=== PATIENT | female | born 1940 | race Caucasian/White ===

== ENCOUNTER 2017-06-02 09:55 | Outpatient (CLI) | payer MEDICARE, OTHER | END 2017-06-02 09:56 | disposition home or self-care (01) | PROVIDERS: ATTEND Physician Assistant | DX: K21.9 Gastro-esophageal reflux disease without esophagitis (principal); R13.10 Dysphagia, unspecified; R49.0 Dysphonia; R49.8 Other voice and resonance disorders | CPT/HCPCS: 74230; G8996-GN-CI; G8997-GN-CH; G8998-GN-CI ==

== ENCOUNTER 2017-09-16 13:15 | Observation (INO) | payer MEDICARE ==
[~2017-09-16 13:15] MED LIST: ISOVUE-370 76%-LOCM 1 ML ONE
[2017-09-16] MEDS ORDERED: Labetalol HCl 100 MG/20 ML VIAL ONE (13:46)
[2017-09-16 14:32] LABS: #Basophils 0.1 thou/uL (0.0-0.2); #Eosinphils 0.2 thou/uL (0.0-0.7); #Lymphocytes 1.9 thou/uL (1.20-3.40); #Monocytes 0.5 thou/uL (0.11-0.59); #Neutrophils 7.2 thou/uL (1.40-6.50); %Eosinophils 1.7 % (0.0-10.0); %Lymphocytes 19.3 % (21.0-51.0); %Monocytes 4.7 % (0.0-10.0); %Neutrophils 73.2 % (42.0-75.0); Hemoglobin 14.2 g/dL (12.0-16.0); Mean Corpuscular HGB CONC 33.4 g/dL (32.0-36.0); Mean Corpuscular Hemoglobin 32.2 pg (27.0-31.0); Mean Corpuscular Volume 96.5 fl (81.0-99.0); Platelet Count 243 thou/uL (130-400); RBC Distribution Width 13.5 % (11.5-14.5); Red Blood Cell (RBC) Count 4.41 mill/uL (4.20-5.40); White Blood Cell (WBC) Count 9.9 thou/uL (4.8-10.8)
[2017-09-16 14:58] LABS: CKMB 2.6 ng/mL (0-6.6); Troponin I 0.023 ng/mL (< 0.028)
[2017-09-16 15:16] LABS: ALT (SGPT) 21 U/L (8-55); AST (SGOT) 33 U/L (5-34); Albumin 4.4 g/dL (3.4-4.8); Alkaline Phosphatase 100 U/L (40-150); Anion Gap 17 mmol/L (10-20); BUN (Urea Nitrogen) 25 mg/dL (9.8-20.1); Bilirubin, Total 0.4 mg/dL (0.2-1.2); CK (CPK) 96 U/L (29-168); Calc. Creatinine Clearance 0 mL/min (70-130); Calcium 10.6 mg/dL (7.8-10.44); Carbon Dioxide 26 mmol/L (23-31); Chloride 101 mmol/L (98-107); Estimated GFR-MDRD 55; Globulin 3.9 g/dL (2.4-3.5); Glucose 100 mg/dL (83-110); Lipase 18 U/L (8-78); Potassium 5.2 mmol/L (3.5-5.1); Protein, Total 8.3 g/dL (6.0-8.3); Sodium 139 mmol/L (136-145)
--- NOTE | 2017-09-16 15:43 | CT ---
CT ANGIOGRAM OF THE CHEST WITH IV CONTRAST AND 3D POSTPROCESSING CT ANGIOGRAM OF THE ABDOMEN WITH IV CONTRAST AND 3D POSTPROCESSING 09/16/17 HISTORY: 77-year-old female with right sided chest pain, arm pain, abdominal pain. FINDINGS: The thoracoabdominal aorta demonstrates good contrast opacification without dissection or aneurysmal dilatation. There is good flow in the celiac axis, ascending, RAHUL and both renal arteries. No pleural or pericardial effusions are seen. No pneumothoraces, focal areas of consolidation or lung masses are identified. There is an 8 mm right paratracheal lymph node. No free air or free fluid is seen in the abdomen. The pancreas, adrenal glands and kidneys are unrema rkable. No hypervascular lesions seen in the liver. The spleen is not satisfactorily evaluated due to imaging during the arterial phase of contrast administration. The patient is post cholecystectomy. T here is an umbilical hernia containing a small portion of the transverse colon. This is a fat contain ing midline abdominal hernia. Postop changes are seen in the abdominal wall. There are degenerative c hanges in the spine. IMPRESSION: No CT evidence of aortic aneurysm or dissection. POS: [facility]
--- NOTE | 2017-09-16 17:24 | CT ---
CERVICAL SPINE CT NONCONTRAST: 09/16/17 CLINICAL HISTORY: Right sided radiculopathy, neck pain. FINDINGS: There is multilevel anterior metallic fusion which spans C4 through C7. No obvious hardware complicat ion. There are intradiscal prosthesis at the C4-5, C5-6 and C6-7 levels. No significant subluxation. No evidence of craniocervical distraction injury. There is no high grade osseous compromise of verteb ral canal at the C1-2 level. C2-3: There is prominent left asymmetric facet degenerative hypertrophy which narrows the left forami nal zone and lateral aspect of the left subarticular zone. There is no high grade osseous compromise of the vertebral canal otherwise demonstrated. C3-4: Mild osseous compromise of the vertebral canal on the basis of disc osteophyte complex. There i s severe bilateral osseous compromise of each neural foramen. At the operative levels of C4-5, C5-6, there is mild to moderate osseous compromise of the vertebral canal although limited by streak artifact. There is also bilateral moderate to severe osseous comprom ise of each neural foramen at these levels. At C6-7 operative site, there is moderate osseous compromise of the vertebral canal greater to the le ft and moderate to severe osseous compromise of each neural foramen. C7-T1: There is moderate osseous compromise of the vertebral canal and moderate right and mild left o sseous compromise of the neural foramen on the basis of disc osteophyte formation. IMPRESSION: Multilevel degenerative change of the cervical spine limited in assessment by noncontrast CT techniqu e, as discussed above. There is no acute fracture or obvious hardware complication visualized. POS: [facility]
[2017-09-16 17:49] LABS: Troponin I 0.014 ng/mL (< 0.028)
[2017-09-16] MEDS ORDERED: Nitroglycerin 0.4 MG TAB (25 Tab Bottle) PO PRN (18:30)
[2017-09-16] MEDS ORDERED: Bisacodyl 5 MG TAB PO PRN ×2 (18:30)
[2017-09-16] MEDS ORDERED: Acetaminophen 325 MG TAB PO PRN (18:30)
[2017-09-16] MEDS ORDERED: HYDROcodone/Acetaminophen 5/325 mg Tablet PO PRN (18:30)
[2017-09-16] MEDS ORDERED: Lorazepam 1 MG TAB PO PRN (18:30)
[2017-09-16] MEDS ORDERED: Diabetic Tussin 200 MG/10 ML UDCUP PO PRN (18:30)
[2017-09-16] MEDS ORDERED: Senokot 8.6 MG TAB PO PRN ×2 (18:30)
[2017-09-16] MEDS ORDERED: Mag-Al 1200 mg/1200 mg/30 ML UDCUP PO PRN (18:30)
[2017-09-16] MEDS ORDERED: Benzonatate 100 MG CAP PO PRN (18:30)
[2017-09-16] MEDS ORDERED: Nitroglycerin 0.4 MG TAB (25 Tab Bottle) SL PRN (18:30)
[2017-09-16] MEDS ORDERED: Loratadine 10 MG TAB PO PRN (18:30)
[2017-09-16] MEDS ORDERED: Calcium Carbonate 500 MG ChewTAB PO PRN (18:30)
[2017-09-16] MEDS ORDERED: cloNIDine 0.1 MG TAB PO PRN (18:30)
[2017-09-16] MEDS ORDERED: hydrALAZINE 20 MG/ML VIAL SLOW IVP PRN (18:30)
[2017-09-16] MEDS ORDERED: Ondansetron HCl/PF 4 MG/2 ML Vial IVP PRN ×2 (18:30→18:31)
[2017-09-16] MEDS ORDERED: Ondansetron ODT 4 MG TAB SL PRN (18:31)
[2017-09-16] MEDS: traMADol HCl 50 MG TAB PO PRN (20:08)
[2017-09-16 21:15] LABS: Cardiac Risk 3.4 (Less than 4.5)
[2017-09-16 21:18] LABS: Troponin I 0.012 ng/mL (< 0.028)
[2017-09-16] MEDS: Famotidine 20 MG TAB PO SCH (21:56)
[2017-09-17] MEDS: traMADol HCl 50 MG TAB PO PRN ×2 (00:09→04:30)
--- NOTE | 2017-09-17 02:02 | HP ---
PRIMARY CARE PHYSICIAN: Dr. Thapa. CHIEF COMPLAINT: Right-sided arm pain, neck pain and chest pain. HISTORY OF PRESENT ILLNESS: Ms. Jha is a very pleasant 77-year-old female with known history of hypertension as well as osteoarthritis of the neck, status post surgery in 2012, who presented to the emergency room with the above-mentioned complaints. History is mainly obtained by the patient herse lf and electronic medical records have been reviewed. Case has been discussed with admitting ER phys laina, Dr. Villagran. According to Ms. Jha, she always has had this pain along with her fibromyalgia pain. She describ es the pain as originating at the back of her neck, shoulder, going down her right arm and really ingrid ting in her right side of the chest. She has had it for a while, but recently it worsened over the c ourse of the last week. She denies any left-sided chest pain or left arm numbness. She does have so me numbness and tingling in the right arm. The pain was pretty intense and she presented to the ER w ith that. She denies any recent illnesses. She denies any fever, chills, cough. She denies any marques rtness of breath, orthopnea or PND. She denies any nausea, vomiting, dizziness or palpitations. Upon presentation to the emergency room, her blood pressure was very high with systolic 210. She und erwent a CT aortic dissection protocol which was negative for dissection or aneurysm. Her cardiac en zymes were done and were unremarkable. A 12-lead EKG was also unremarkable for acute NC. She is now being admitted for further workup of "chest pain." Please note that on my interview with the patient, the patient denies any left-sided chest pain sympt oms. She emphasizes that her pain is mainly on the right arm and right side of the chest and she is significantly tender to palpation in that area. She reports sharp, shooting, burning pain in the arm and reports that it has been there for many months. PAST MEDICAL HISTORY: Hypertension, fibromyalgia. PAST SURGICAL HISTORY: 1. History of neck surgery. 2. Bladder suspension. 3. Cholecystectomy. 4. Hysterectomy. 5. Bilateral knee surgery. 6. Bilateral shoulder surgery PSYCHIATRIC HISTORY: No anxiety or depression. SOCIAL HISTORY: She is and lives with her . No history of drug, tobacco or alcohol a buse. FAMILY HISTORY: No significant family history of coronary artery disease or stroke. ALLERGIES: 1. ADHESIVE TAPE. 2. CEPHALEXIN. 3. ENALAPRIL. 4. NIFEDIPINE. 5. SULFONAMIDE. 6. CURRENT MEDICATIONS: The patient does not remember her home medications. She states that she is lanie ing a water pill and potassium along with that. REVIEW OF SYSTEMS: The following complete review of systems was negative, unless otherwise mentioned in the HPI or below: Constitutional: Weight loss or gain, ability to conduct usual activities. Sk in: Rash, itching. Eyes: Double vision, pain. ENT/Mouth: Nose bleeding, neck stiffness, pain, te nderness. Cardiovascular: Palpitations, dyspnea on exertion, orthopnea. Respiratory: Shortness of breath, wheezing, cough, hemoptysis, fever or night sweats. Gastrointestinal: Poor appetite, abdom inal pain, heartburn, nausea, vomiting, constipation, or diarrhea. Genitourinary: Urgency, frequenc y, dysuria, nocturia. Musculoskeletal: Pain, swelling. Neurologic/Psychiatric: Anxiety, depressio n. Allergy/Immunologic: Skin rash, bleeding tendency. It is negative except for those mentioned in the history and physical. LABORATORY DATA: CBC is unremarkable. Serum chemistries show potassium of 5.2, BUN of 25, creatinin e of 0.99, calcium 10.6, CK-MB 2.6, troponin 0.023. CT of the chest and abdomen with aortic dissecti on protocol was done and there is no evidence of aneurysm or dissection of the aorta. No pulmonary o r pleural abnormality is seen either. A 12-lead EKG by my review shows normal sinus rhythm at 66 haroldo ts per minute without any specific ST or T-wave changes. PHYSICAL EXAMINATION: VITAL SIGNS: Upon presentation, blood pressure 210/82, pulse of 77, respirations 18, saturating 98% on room air, temperature 97.6. GENERAL: Patient is clutching her right arm in her left arm and appears to be uncomfortable due to t he pain. Otherwise, she is awake, alert, oriented x3. She is able to provide all of the history wit hout any discomfort. HEENT: Mucous membranes moist and pink. No oropharyngeal exudate or erythema. Head is normocephali c, atraumatic. Pupils are equal, reactive to light and accommodation. Extraocular movements are int act. NECK: Supple without any lymphadenopathy, JVD or bruit. CHEST: Clear to auscultation without any wheezing, rales or rhonchi. Rate and rhythm is regular wit hout any murmurs, rubs, or gallops. She is extremely tender to palpation in the right anterior chest , right lateral chest and her right arm. ABDOMEN: Soft, obese, nontender, nondistended. No guarding, rebound or rigidity. EXTREMITIES: Free of any cyanosis, clubbing, or edema. She has palpable radial pulses felt bilatera lly in upper extremities. SKIN: Free of any rashes or bruises. Feels warm and dry to touch. NEUROLOGIC: Nonfocal. PSYCHIATRIC: Normal affect. IMPRESSION AND PLAN: 1. Right-sided arm and chest pain. This is highly unlikely for acute myocardial infarction. She rosa s normal Cardiac enzymes, normal EKG. She reported that she sees Dr. Carrasco as an outpatient and has h ad a recent stress test done. I discussed this with Dr. Carrasco over the phone and indeed she had a nor mal stress test done in 11/2016. For this reason and because of the clinical signs and symptoms poin ting to an alternate diagnosis, we will just try and do serial cardiac enzymes. We will, however, go ahead and order a CT scan of the cervical spine. The last one she had was done in 11/2016 which did show some cord impingement. As such if required, we will consult Neurosurgery. For now, she will b e monitored on telemetry floor. 2. Hypertensive urgency. The pain is exacerbating her blood pressure. We will restart her home med ications and add p.r.n. antihypertensives. Her blood pressure is under better control now that she h as received labetalol and morphine in the emergency room. We will continue to monitor symptoms. 3. Fibromyalgia. 4. History of osteoarthritis. 5. CODE STATUS: FULL CODE. Discussed with the patient. 6. Deep venous thrombosis and gastrointestinal prophylaxis. 7. DISPOSITION: Ms. Jha is being admitted to the hospital for workup of "chest pain." However, her symptoms are more indicative of radiculopathy. Nevertheless, she will be admitted and workup fo r both will be initiated. Further management will depend upon her clinical course.
[2017-09-17 06:09] LABS: #Basophils 0.1 thou/uL (0.0-0.2); #Eosinphils 0.1 thou/uL (0.0-0.7); #Lymphocytes 1.6 thou/uL (1.20-3.40); #Monocytes 0.4 thou/uL (0.11-0.59); #Neutrophils 3.9 thou/uL (1.40-6.50); %Eosinophils 1.9 % (0.0-10.0); %Lymphocytes 26.3 % (21.0-51.0); %Monocytes 6.1 % (0.0-10.0); %Neutrophils 64.8 % (42.0-75.0); Hemoglobin 11.8 g/dL (12.0-16.0); Mean Corpuscular HGB CONC 32.8 g/dL (32.0-36.0); Mean Corpuscular Hemoglobin 32.1 pg (27.0-31.0); Mean Platelet Volume 9.3 fL (7.4-10.4); Platelet Count 200 thou/uL (130-400); RBC Distribution Width 13.4 % (11.5-14.5); Red Blood Cell (RBC) Count 3.69 mill/uL (4.20-5.40)
[2017-09-17 06:26] LABS: Anion Gap 8 mmol/L (10-20); BUN (Urea Nitrogen) 21 mg/dL (9.8-20.1); Calc. Creatinine Clearance 80 mL/min (70-130); Calcium 9.6 mg/dL (7.8-10.44); Carbon Dioxide 28 mmol/L (23-31); Chloride 103 mmol/L (98-107); Estimated GFR-MDRD 70; Glucose 91 mg/dL (83-110); Sodium 135 mmol/L (136-145)
[2017-09-17 08:57] VITALS: BP 200/86; TEMP 97.3
[2017-09-17] MEDS ORDERED: Enoxaparin Sodium 40 MG/0.4 ML SYRINGE SC SCH (09:00)
[2017-09-17] MEDS ORDERED: Aspirin 325 MG TAB PO SCH (09:00)
[2017-09-17] MEDS: Famotidine 20 MG TAB PO SCH (09:02)
--- NOTE | 2017-09-17 11:12 | PDOC.PN ---
- Subjective Encounter Start Date: 09/17/17 Encounter Start Time: 09:45 Subjective: c/o right UE pain radiating from her neck -: no palp or sob - Objective MAR Reviewed: Yes Vital Signs & Weight: Vital Signs (12 hours) Temp Pulse Resp BP Pulse Ox 09/17/17 09:02 97.3 F L 71 20 09/17/17 08:05 97.3 F L 71 20 200/86 H 92 L 09/17/17 04:25 97.6 F 77 14 136/69 96 09/16/17 23:41 63 16 130/61 92 L Weight Weight 183 lb 12.8 oz I&O: 09/16/17 09/17/17 09/18/17 06:59 06:59 06:59 Intake Total 600 Balance 600 Result Diagrams: 09/17/17 05:06 09/17/17 05:06 Phys Exam - Physical Examination HEENT: PERRLA, moist MMs Neck: no JVD, supple Respiratory: no wheezing, no rales Cardiovascular: RRR, no significant murmur Gastrointestinal: soft, non-tender, positive bowel sounds Musculoskeletal: no edema, pulses present Neurological: non-focal, moves all 4 limbs Psychiatric: A&O x 3 Dx/Plan (1) Radicular pain of right upper extremity Code(s): M79.2 - NEURALGIA AND NEURITIS, UNSPECIFIED Status: Acute (2) Dyslipidemia Code(s): E78.5 - HYPERLIPIDEMIA, UNSPECIFIED Status: Chronic (3) HTN (hypertension) Code(s): I10 - ESSENTIAL (PRIMARY) HYPERTENSION Status: Chronic Qualifiers: Hypertension type: essential hypertension Qualified Code(s): I10 - Essential (primary) hypertension (4) Fibromyalgia Status: Chronic (5) Chest pain Code(s): R07.9 - CHEST PAIN, UNSPECIFIED Status: Acute Comment: atypical pain sec to radiculopathy - Plan pt to f/u with in am at 8.40am -: she also needs to see her orthopedic surgeon and -: chest pain is noncardiac -: dc pt home -: ultram prn for pain * .
--- NOTE | 2017-09-17 15:49 | DIS ---
DATE OF ADMISSION: 09/16/2017 DATE OF DISCHARGE: 09/17/2017 DISCHARGE DISPOSITION: To home. PRIMARY DISCHARGE DIAGNOSES: Right-sided chest pain, which is noncardiac and right upper extremity radicular pain. SECONDARY DISCHARGE DIAGNOSES: History of fibromyalgia, hypertension, and dyslipidemia. PROCEDURES DONE DURING HOSPITALIZATION: The patient has had CT cervical spine, noncontrast study done, which showed multilevel degenerative changes of the C- spine. CT dissection protocol done showed no evidence of aneurysm or dissection. H&H 11 and 36, platelet count 200, MCV is 98. White count of 6. Troponin x3 negative. LDL 142, lipase 18, BUN 21, and creatinine 0.8. DISCHARGE MEDICATIONS: Ultram 50 mg q.6 hourly p.r.n., K-Dur 20 mEq p.o. daily , Lasix 20 mg daily, and Lopressor 25 mg daily. ALLERGIES: KEFLEX, ADHESIVES, ENALAPRIL, GABAPENTIN, LOSARTAN, MEPERIDINE, and SULFA. DISCHARGE PLAN: Patient to follow up with Dr. Miles in the morning at 8:40 a.m. and primary care physician in 1 week. BRIEF COURSE DURING HOSPITALIZATION: Patient initially came to ER with complaints of right-sided chest pain and more of right upper extremity pain radiating from her neck down to her right upper extremity. She has had this for nearly 2-3 months now. She has had followups with Dr. Duran and her orthopedic surgeon, Dr. Masterson per patient. As this was unrelenting, she came to the ER. The patient was placed under observation to rule out ACS. Three sets of cardiac enzymes were negative. Patient has had prior cervical MRI done in , which showed hypertrophic changes at C5-C6 and C6-C7, which were impinging on the cord then. She has also had C-spine surgery done in 06/[address] Gokul Duran. In view of her right upper extremity radicular symptoms, she is being scheduled for outpatient appointment with Dr. Miles for possible epidural shot for pain relief. She also needs follow up with her orthopedic surgeon to rule out right shoulder issues. She is otherwise hemodynamically stable and will be shortly discharged home. Please see a face- to-face documentation on [facility] for the day of discharge. [facility]
--- NOTE | 2017-09-20 12:00 | EKG ---
Test Reason : Blood Pressure : / mmHG Vent. Rate : 066 BPM Atrial Rate : 066 BPM P-R Int : 148 ms QRS Dur : 078 ms QT Int : 386 ms P-R-T Axes : 046 018 030 degrees QTc Int : 404 ms Normal sinus rhythm Possible Inferior infarct , age undetermined Abnormal ECG Confirmed by ABEBE THOMAS MD ([id number]), marketing editor FAVIAN CORDERO ([id number]) on 09/20/2017 12:00:08 PM Referred By: Confirmed By:ABEBE THOMAS MD
== END 2017-09-17 10:57 | disposition home or self-care (01) ==
LOC: ERS 13:15 → ERHOLD 15:20 → 2SW 18:01
PROVIDERS: ADMIT Internal Medicine; ATTEND Internal Medicine
DX: R07.89 Other chest pain (principal); M79.2 Neuralgia and neuritis, unspecified; E78.5 Hyperlipidemia, unspecified; I10 Essential (primary) hypertension; M79.7 Fibromyalgia; Z88.1 Allergy status to other antibiotic agents; Z88.2 Allergy status to sulfonamides; Z88.8 Allergy status to other drugs, medicaments and biological substances; Z91.048 Other nonmedicinal substance allergy status; Z90.49 Acquired absence of other specified parts of digestive tract; Z90.710 Acquired absence of both cervix and uterus; Z98.890 Other specified postprocedural states
CPT/HCPCS: 71275; 72125; 80048; 80053; 80061; 82550; 82553; 83690; 84484 ×2; 85025 ×2; 93005; 96372; 96374; 96375; 96376; 99285; G0378 ×2; 36415; J1650; J2270; J2405; Q0162

== ENCOUNTER 2017-10-08 12:25 | Outpatient (CLI) | payer MEDICARE ==
[~2017-10-08 12:25] MED LIST changes: +Gadobenate Dimeglumine 529 MG/1 ML (20ML VIAL) ONE; -ISOVUE-370 76%-LOCM 1 ML ONE
--- NOTE | 2017-10-08 15:57 | MRI ---
MRI CERVICAL SPINE WITH AND WITHOUT IV CONTRAST: INDICATION: History of continued pain and numbness in the right arm and hand but now has progressed to the left u pper extremity. The patient has a history of neck surgery. TECHNIQUE: Multiplanar, multisequence MR images were obtained of the cervical spine with and without contrast. Twenty CC of MultiHance was utilized for the exam. Comparisons are made with a prior study dated 11/16 . FINDINGS: There is postprocedural change consistent with ACDF spanning C4 through C7. The extent of the ACDF a ppears similar to the prior exam. Prominent right granulation is again seen within the posterior occ ipital skull. Posterior fossa appears within normal limits. Craniocervical junction appears within normal limits. At C2-3, there is advanced left and moderate right facet joint degenerative. There is uncovertebral hypertrophy. Constellation of findings induces moderate to severe bilateral neural foraminal narrowi ng, left greater than right, which is stable to the prior exam. At C3-4, there is uncovertebral hypertrophy and facet joint degenerative change and a mild broad-base d bulge causing mild central canal narrowing. This appears stable to the prior exam. Constellation of findings induces stable severe bilateral neural foraminal narrowing. At C4-5, there is residual uncovertebral hypertrophy and osteophyte formation inducing moderate right and mild to moderate left neural foraminal narrowing. At C5-6, there is residual osteophyte complex inducing mild to moderate bilateral osseous neural fora roman narrowing and mild to moderate bilateral neural foraminal narrowing which is stable. At C6-7, there is residual osteophyte complex inducing mild to moderate central canal narrowing with mild ventral effacement of the spinal cord. No cord signal abnormality is evident. This is stable t o the prior exam. There is stable severe left and moderate right neural foraminal narrowing. At C7-T1, there is stable osteophyte complex causing severe right and mild left neural foraminal narr owing. No definite abnormal region of enhancement is noted. IMPRESSION: 1. Stable multilevel neural foraminal narrowing as detailed above. 2. Stable central canal narrowing seen at C6-7 and C7-T1. POS: [facility]
== END 2017-10-08 12:26 | disposition home or self-care (01) ==
LOC: MRI 12:25
PROVIDERS: ATTEND Surgery
DX: M54.12 Radiculopathy, cervical region (principal); M99.81 Other biomechanical lesions of cervical region
CPT/HCPCS: 72156; A9579

== ENCOUNTER 2017-10-27 11:59 | Outpatient (CLI) | payer MEDICARE ==
[2017-10-27 12:53] LABS: Hemoglobin 12.8 g/dL (12.0-16.0); Mean Corpuscular HGB CONC 33.7 g/dL (32.0-36.0); Mean Corpuscular Hemoglobin 32.3 pg (27.0-31.0); Mean Corpuscular Volume 96.1 fl (81.0-99.0); Platelet Count 186 thou/uL (130-400); RBC Distribution Width 13.2 % (11.5-14.5); Red Blood Cell (RBC) Count 3.96 mill/uL (4.20-5.40); White Blood Cell (WBC) Count 6.2 thou/uL (4.8-10.8)
[2017-10-27 13:16] LABS: Anion Gap 11 mmol/L (10-20); BUN (Urea Nitrogen) 25 mg/dL (9.8-20.1); Calc. Creatinine Clearance 0 mL/min (70-130); Calcium 10.2 mg/dL (7.8-10.44); Carbon Dioxide 28 mmol/L (23-31); Chloride 105 mmol/L (98-107); Estimated GFR-MDRD 66; Glucose 90 mg/dL (83-110); Potassium 4.4 mmol/L (3.5-5.1); Sodium 140 mmol/L (136-145)
[2017-10-27 13:31] LABS: PTT 28.2 SEC (22.9-36.1); Prothrombin Time 12.9 SEC (12.0-14.7)
== END 2017-10-27 12:00 | disposition home or self-care (01) ==
LOC: LABBT 11:59
PROVIDERS: ATTEND Surgery
DX: Z01.810 Encounter for preprocedural cardiovascular examination (principal); Z01.812 Encounter for preprocedural laboratory examination; M48.02 Spinal stenosis, cervical region; M54.12 Radiculopathy, cervical region
CPT/HCPCS: 80048; 85027; 85610; 85730; 93005; 93010

== ENCOUNTER 2017-11-04 07:28 | Day surgery (SDC) | payer MEDICARE ==
[2017-11-04] MEDS ORDERED: Clindamycin/D5W 900 mg/50 ml Premix Bag ONE (08:10)
[2017-11-04] MEDS ORDERED: Levofloxacin 500 mg/D5W 100 ml Premix Bag ONE (08:11)
[2017-11-04] MEDS ORDERED: Bacitracin Zinc Ointment 30 gm TUBE ONE (09:54)
[2017-11-04] MEDS ORDERED: Thrombin 5000 UNITS/5 ML VIAL ONE (10:51)
[2017-11-04] MEDS ORDERED: Sodium Chloride 0.9% 10 ML ONE (10:51)
[2017-11-04] MEDS ORDERED: Phenylephrine HCL 10 MG/ML VIAL ONE (11:01)
[2017-11-04] MEDS ORDERED: Fentanyl 250 MCG/5 ML VIAL ONE (11:05)
[2017-11-04] MEDS ORDERED: Metoclopramide HCl 10 MG/2 ML VIAL ONE ×2 (13:33→14:56)
--- NOTE | 2017-11-04 14:40 | OP ---
DATE OF PROCEDURE: 11/04/2017 OR: OR #11 SURGEON: Gokul Duran M.D. CARD FOLDER: Keny Horton PA-C. 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 PROCEDURE: 1. Bilateral C7-T1 hemilaminotomy and foraminotomies for decompression of the C8 nerve roots. 2. Bilateral T1-T2 hemilaminotomies, foraminotomies for decompression of the T1 nerve roots bilatera lly and removal of bone spur formation with medial facetectomies, bilateral C7-T1, bilateral T1-T2, w ith history of C4-C7 anterior cervical diskectomy and fusion. PROCEDURE: After informed consent was obtained from the patient, the patient brought to OR 11. [facility] patient pause and identification was carried out. She was placed under excellent endotracheal ane sthesia and positioned prone on the operating room table following the placement of the Fishman pini on and securing it to her skull. We then turned our attention to drawing out a tadeo over the C7-T1 a nd T2 segments over the dorsum of the spine and this region was sterilely cleansed, prepared, and anastasia ped following securing the Fishman. We then sterilely cleansed, prepared, and draped the region and an incision over the C7, T1 and T2 segments was drawn out dorsally and this region sterilely cleanse d, prepared, and draped. The wound was then opened with a combination of sharp, monopolar and blunt dissection. We exposed the bilateral C7-T1 and T2 segments. We were careful to preserve the lateral 50% of the facet joint bilaterally along with the interspinous ligament and spinous processes at C7, T1, and T2 to preserve stability below her prior construct. Localization film confirmed our area of interest and we then performed bilateral C7-T1 and bilateral T1-T2 hemilaminotomies, foraminotomies and mesial facetectomies for decompression of the bilateral C8 and bilateral T1 nerve roots. We had excellent decompression of the nerve roots and copious irrigation occurred throughout Hemostasis was maximized throughout as well and the wound was then closed in anatomic layers following the sprinklin g of vancomycin powder. There was no spinal fluid leak. The patient then emerged from anesthesia.
[2017-11-04] MEDS ORDERED: Promethazine HCl 25 MG/ML VIAL IM PRN ×2 (14:48→15:02)
[2017-11-04] MEDS ORDERED: Fleet Enema 133 ML BOT PR PRN (14:48)
[2017-11-04] MEDS ORDERED: Mag-Al 1200 mg/1200 mg/30 ML UDCUP PO PRN (14:48)
[2017-11-04] MEDS ORDERED: tiZANidine HCl 4 MG TAB PO PRN (14:48)
[2017-11-04] MEDS ORDERED: traMADol HCl 50 MG TAB PO PRN (14:48)
[2017-11-04] MEDS ORDERED: Bisacodyl 10 MG SUPP PR PRN (14:48)
[2017-11-04] MEDS ORDERED: Milk Of Magnesia 30 ML UDCUP PO PRN (14:48)
[2017-11-04] MEDS ORDERED: Acetaminophen/Codeine 30-300mg Tablet PO PRN (14:48)
[2017-11-04] MEDS ORDERED: Acetaminophen 325 MG TAB PO PRN (14:48)
[2017-11-04] MEDS ORDERED: Polyethylene Glycol 3350 17 GM Packet PO PRN (14:51)
[2017-11-04] MEDS ORDERED: PHENYLEPHRINE-NS 100 MCG/ML 10 ML SYRINGE ONE (14:56)
[2017-11-04] MEDS ORDERED: Dexamethasone 20 MG/5 ML VIAL ONE (14:56)
[2017-11-04] MEDS ORDERED: Glycopyrrolate 0.2 MG/ML 5 ML SYRINGE ONE ×2 (14:56)
[2017-11-04] MEDS ORDERED: PROPOFOL 200 MG/20 ML VIAL ONE (14:56)
[2017-11-04] MEDS ORDERED: Ondansetron HCl/PF 4 MG/2 ML Vial ONE (14:56)
[2017-11-04] MEDS ORDERED: Lidocaine 1% PF 5 ML VIAL ONE (14:56)
[2017-11-04] MEDS ORDERED: Ondansetron HCl/PF 4 MG/2 ML Vial IVP PRN (15:02)
[2017-11-04] MEDS ORDERED: Morphine Sulfate 2 MG/ML SYRINGE SLOW IVP PRN (15:02)
[2017-11-04] MEDS ORDERED: Promethazine HCl 25 MG/ML VIAL SLOW IVP PRN (15:02)
[2017-11-04] MEDS ORDERED: HYDROmorphone 2 MG/ML VIAL SLOW IVP PRN (15:02)
[2017-11-04] MEDS ORDERED: Promethazine HCl 25 MG/ML VIAL ONE (15:10)
[2017-11-04 17:15] VITALS: BMI 34.7
[2017-11-04] MEDS: Sodium Chloride 0.9% 1,000 ML IV SCH (18:09)
[2017-11-04] MEDS: Metoprolol Tartrate 25 MG TAB PO SCH (21:58)
[2017-11-04] MEDS: Clindamycin/D5W 900 MG in Premix Bag 1 BAG IVPB SCH (21:59)
[2017-11-04] MEDS: Nystatin Powder 15 GM BOT TOP SCH (21:59)
[2017-11-05] MEDS: Sodium Chloride 0.9% 1,000 ML IV SCH (05:20)
[2017-11-05] MEDS: Clindamycin/D5W 900 MG in Premix Bag 1 BAG IVPB SCH (05:20)
[2017-11-05 07:37] VITALS: BP 152/74; TEMP 98.1
[2017-11-05] MEDS: Metoprolol Tartrate 25 MG TAB PO SCH (08:56)
[2017-11-05] MEDS: Nystatin Powder 15 GM BOT TOP SCH (08:58)
[2017-11-05] MEDS ORDERED: Furosemide 20 MG TAB PO SCH (09:00)
[2017-11-05] MEDS ORDERED: Potassium Chloride 8 MEQ TAB PO SCH (09:00)
--- NOTE | 2017-11-05 11:08 | PRG ---
DATE OF SERVICE: 11/05/2017 The patient is now postoperative day #1, having undergone posterior cervical foraminotomies and hemil aminotomies at C7-T1 and T1-T2. The patient states overall she is very pleased with her outcome post operatively. The pain she experienced especially into the bilateral armpits has completely resolved at this time. She does continue to have some numbness and tingling into the radial aspect of the clay ateral arms and to the 3rd and 4th digits, but otherwise states she is much better today. She has ve ry good function in the hands and she notes even improvement in strength into the bilateral triceps a nd bilateral hand intrinsics. She has intact sensation to light touch throughout. She has voided, t olerated a diet, and pain is controlled with oral medications. She has walked. She now meets criter ia for discharge. We will plan for dismissal later today. We did review postoperative activity rest rictions. An opportunity was given to the patient and her to discuss their questions and con cerns.
== END 2017-11-05 10:52 | disposition home or self-care (01) ==
LOC: SDC 07:28 → T4-A 16:52 → SDC 11-05 10:52
PROVIDERS: ATTEND Surgery
PROC: 01N10ZZ Release Cervical Nerve, Open Approach (ICD-10-PCS; principal; 2017-11-04)
PROC: 01N80ZZ Release Thoracic Nerve, Open Approach (ICD-10-PCS; 2017-11-04)
DX: M48.02 Spinal stenosis, cervical region (principal); M54.12 Radiculopathy, cervical region; M48.04 Spinal stenosis, thoracic region; M54.14 Radiculopathy, thoracic region; I10 Essential (primary) hypertension; G47.33 Obstructive sleep apnea (adult) (pediatric); K21.9 Gastro-esophageal reflux disease without esophagitis; K58.1 Irritable bowel syndrome with constipation; N39.3 Stress incontinence (female) (male); M19.90 Unspecified osteoarthritis, unspecified site; F32.9 Major depressive disorder, single episode, unspecified; Z79.899 Other long term (current) drug therapy; Z88.1 Allergy status to other antibiotic agents; Z88.2 Allergy status to sulfonamides; Z88.5 Allergy status to narcotic agent; Z88.8 Allergy status to other drugs, medicaments and biological substances; Z98.1 Arthrodesis status; Z96.653 Presence of artificial knee joint, bilateral; Z99.89 Dependence on other enabling machines and devices
CPT/HCPCS: A4216; J0131; J1100; J1956; J2001; J2370; J2405; J2550; J2704; J2765; J3010; J3370; J3490

== ENCOUNTER 2017-11-09 21:41 | Emergency (ER) | payer MEDICARE ==
[~2017-11-09 21:41] MED LIST changes: -Gadobenate Dimeglumine 529 MG/1 ML (20ML VIAL) ONE; +ISOVUE-370 76%-LOCM 1 ML ONE
[2017-11-09] MEDS ORDERED: Nitroglycerin 2% Ointment 1 INCH/1 GM Packet ONE (22:23)
[2017-11-09 22:34] LABS: Bilirubin Negative (Negative); Blood, Urine Negative (Negative); Clarity CLEAR (Clear); Glucose, Urine (Dipstick) Negative (Negative); Leukocyte Negative (Negative); Nitrite Negative (Negative); Protein, Urine (Dipstick) Negative (Neg-Trace); Specific Gravity, Urine 1.013 (1.002-1.036)
[2017-11-09 22:35] LABS: #Basophils 0.1 thou/uL (0.0-0.2); #Eosinphils 0.3 thou/uL (0.0-0.7); #Lymphocytes 1.9 thou/uL (1.20-3.40); #Monocytes 0.7 thou/uL (0.11-0.59); #Neutrophils 7.2 thou/uL (1.40-6.50); %Basophils 0.9 % (0.0-1.0); %Eosinophils 2.6 % (0.0-10.0); %Lymphocytes 18.5 % (21.0-51.0); %Monocytes 7.3 % (0.0-10.0); %Neutrophils 70.7 % (42.0-75.0); Hemoglobin 11.2 g/dL (12.0-16.0); Mean Corpuscular HGB CONC 34.8 g/dL (32.0-36.0); Mean Corpuscular Hemoglobin 33.4 pg (27.0-31.0); Mean Corpuscular Volume 96.2 fl (81.0-99.0); Mean Platelet Volume 8.8 fL (7.4-10.4); Platelet Count 233 thou/uL (130-400); RBC Distribution Width 12.3 % (11.5-14.5); Red Blood Cell (RBC) Count 3.35 mill/uL (4.20-5.40); White Blood Cell (WBC) Count 10.2 thou/uL (4.8-10.8)
[2017-11-09 22:37] LABS: PTT 33.2 SEC (22.9-36.1); Prothrombin Time 13.3 SEC (12.0-14.7)
[2017-11-09 22:49] LABS: ALT (SGPT) 27 U/L (8-55); AST (SGOT) 22 U/L (5-34); Albumin 3.7 g/dL (3.4-4.8); Alkaline Phosphatase 154 U/L (40-150); Anion Gap 15 mmol/L (10-20); BUN (Urea Nitrogen) 17 mg/dL (9.8-20.1); Bilirubin, Total 0.7 mg/dL (0.2-1.2); CK (CPK) 39 U/L (29-168); Calc. Creatinine Clearance 0 mL/min (70-130); Calcium 9.9 mg/dL (7.8-10.44); Carbon Dioxide 26 mmol/L (23-31); Chloride 99 mmol/L (98-107); Estimated GFR-MDRD 49; Globulin 3.2 g/dL (2.4-3.5); Glucose 88 mg/dL (83-110); Potassium 3.8 mmol/L (3.5-5.1); Protein, Total 6.9 g/dL (6.0-8.3); Sodium 136 mmol/L (136-145)
--- NOTE | 2017-11-09 22:52 | RAD ---
PORTABLE AP CHEST: Date: 11/09/17 HISTORY: Chest pain. History of neck surgery on Friday. COMPARISON: 09/22/14. FINDINGS: Cardiac silhouette and pulmonary vasculature are within normal limits for the portable technique of t he study. The lungs are clear. Postsurgical changes related to anterior cervical fusion are again not ed. There are skin clips also overlying the midline lower cervical spine. There is left glenohumeral osteoarthropathy present. IMPRESSION: No acute cardiopulmonary process. POS: [facility]
[2017-11-09 22:53] LABS: CKMB 0.7 ng/mL (0-6.6); Troponin I Less than 0.010 ng/mL (< 0.028)
--- NOTE | 2017-11-09 23:15 | CT ---
CT ANGIOGRAM THORAX WITH IV CONTRAST AND 3D RECONSTRUCTIONS: Date: 11/09/17 HISTORY: Chest pain with pain radiating to back. Shortness of breath. History of spine surgery on Friday. COMPARISON: 09/16/17. FINDINGS: There are no filling defects seen in the pulmonary arteries to suggest a pulmonary embolus. Thoracic aorta is normal in caliber without evidence of an aortic dissection. The heart is enlarged. There is minimal pleural effusion versus pleural thickening posteriorly. There is also dependent atel ectasis bilaterally. Mediastinal structures have a normal CT appearance. Post cholecystectomy changes are noted. Remainder of the upper abdomen has a normal CT appearance for arterial phase of imaging. There is partial visualization of a fat-containing ventral abdominal wall hernia. Multilevel degenerative changes are seen within the thoracic spine. There is bilateral glenohumeral o steoarthropathy with acromioclavicular joint osteoarthritis present. IMPRESSION: 1. No CT evidence of a pulmonary embolus. 2. Thoracic aorta is normal in caliber without evidence of an aortic dissection. 3. Minimal pleural effusions and/or pleural thickening with dependent atelectasis bilaterally. 4. Mild cardiomegaly. 5. Post cholecystectomy changes. 6. Degenerative changes in the spine. POS: [facility]
--- NOTE | 2017-11-09 23:43 | CT ---
CT THORACIC SPINE: Date; 11/09/17 HISTORY: Chest pain. History of cervical spine fusion. Patient also reports chest pain which radiates to the b ack. TECHNIQUE: Reformatted images are obtained from CT angiogram of the chest. FINDINGS: There are postsurgical changes related to anterior cervical fusion of the lower cervical spine. There are punctate foci of gas seen adjacent to the lamina of the lower cervical spine and upper thoracic spine of uncertain etiology, but probably related to postsurgical changes as there are skin clips see n posteriorly at these levels as well. There are probable laminotomy defects at C7 and T1 level. There is no fracture or subluxation seen involving the thoracic spine. There are multilevel degenerat elena changes seen involving the lower thoracic and upper lumbar spine with vacuum phenomenon seen at m ultiple levels and narrowing of the intervertebral disc spaces. There are multilevel osteophyte forma tions seen, greatest anteriorly. Facet degenerative changes are seen at multiple levels of the lower thoracic and visualized upper lumbar spine. No obvious intradural or extradural defect is seen involv ing the thoracic spine. There are varying degrees of neural foraminal narrowing in the lower thoracic spine, primarily secondary to the facet hypertrophic changes. No vertebral body height loss is present. The paravertebral soft tissues are within normal limits, although there is slight decreased attenuati on posterior to the region of the cervicothoracic junction likely related to the recent postsurgical changes. Findings within the lungs are described on CTA of the chest. Please see that exam for further details . IMPRESSION: 1. Postsurgical changes of the cervical spine related to anterior cervical fusion with postsurgical changes seen posteriorly within the region of the cervicothoracic junction. Skin clips are also seen posteriorly at this level with foci of gas seen adjacent to the lamina. 2. Degenerative changes in the thoracic spine, but no fracture or subluxation is present. POS: [facility]
== END 2017-11-10 02:30 | disposition home or self-care (01) ==
LOC: ERS 21:41
DX: G89.18 Other acute postprocedural pain (principal); M54.6 Pain in thoracic spine; I10 Essential (primary) hypertension; M79.7 Fibromyalgia
CPT/HCPCS: 36415; 71045; 71275; 72129; 80053; 81003; 82553; 83880; 84484; 85025; 85610; 85730; 93005

== ENCOUNTER 2017-11-16 11:28 | Observation (INO) | payer MEDICARE ==
[2017-11-16 12:23] LABS: #Basophils 0.1 thou/uL (0.0-0.2); #Eosinphils 0.2 thou/uL (0.0-0.7); #Monocytes 0.4 thou/uL (0.11-0.59); #Neutrophils 6.3 thou/uL (1.40-6.50); %Basophils 0.7 % (0.0-1.0); %Eosinophils 2.4 % (0.0-10.0); %Monocytes 4.4 % (0.0-10.0); %Neutrophils 70.5 % (42.0-75.0); Hemoglobin 11.3 g/dL (12.0-16.0); Mean Corpuscular HGB CONC 33.4 g/dL (32.0-36.0); Mean Corpuscular Hemoglobin 33.1 pg (27.0-31.0); Mean Platelet Volume 8.4 fL (7.4-10.4); Platelet Count 322 thou/uL (130-400); RBC Distribution Width 12.5 % (11.5-14.5); Red Blood Cell (RBC) Count 3.41 mill/uL (4.20-5.40)
--- NOTE | 2017-11-16 12:29 | CT ---
CT BRAIN NONCONTRAST: HISTORY: A 77-year-old female with symptoms of acute stroke: hypesthesia (numbness) in face and fingertips. This stroke-alert protocol report was called STAT to Dr. Brar at 11:41 a.m. on 11/16/17. FINDINGS: There is no midline shift or any other mass effect. There is no evidence of acute intracranial hemor rhage, large cortical infarct, obstructive hydrocephalus, or extraaxial fluid collection. The calvar ium is intact. IMPRESSION: No acute intracranial findings. CODE CR jn [] POS: [facility]
[2017-11-16 12:33] LABS: PTT 34.7 SEC (22.9-36.1); Prothrombin Time 13.3 SEC (12.0-14.7)
[2017-11-16 12:37] LABS: ALT (SGPT) 15 U/L (8-55); AST (SGOT) 13 U/L (5-34); Albumin 3.7 g/dL (3.4-4.8); Alkaline Phosphatase 102 U/L (40-150); Anion Gap 12 mmol/L (10-20); BUN (Urea Nitrogen) 23 mg/dL (9.8-20.1); Bilirubin, Total 0.4 mg/dL (0.2-1.2); Calc. Creatinine Clearance 0 mL/min (70-130); Calcium 9.7 mg/dL (7.8-10.44); Carbon Dioxide 29 mmol/L (23-31); Chloride 102 mmol/L (98-107); Estimated GFR-MDRD 49; Glucose 97 mg/dL (83-110); Magnesium 1.8 mg/dL (1.6-2.6); Potassium 3.9 mmol/L (3.5-5.1); Protein, Total 6.7 g/dL (6.0-8.3); Sodium 139 mmol/L (136-145)
[2017-11-16 12:41] LABS: CKMB 1.4 ng/mL (0-6.6); Troponin I Less than 0.010 ng/mL (< 0.028)
[2017-11-16 12:42] LABS: Bilirubin Negative (Negative); Blood, Urine Negative (Negative); Clarity CLEAR (Clear); Glucose, Urine (Dipstick) Negative (Negative); Leukocyte Negative (Negative); Nitrite Negative (Negative); Protein, Urine (Dipstick) Negative (Neg-Trace); Urobilinogen 0.2 mg/dL (0.2-1.0)
[2017-11-16] MEDS ORDERED: Guaifenesin DM 100-10/5 ML UDCUP PO PRN (14:53)
[2017-11-16] MEDS ORDERED: Acetaminophen 325 MG TAB PO PRN (14:53)
[2017-11-16] MEDS ORDERED: predniSONE 20 MG TAB PO SCH (15:00)
[2017-11-16 15:23] LABS: Troponin I Less than 0.010 ng/mL (< 0.028)
[2017-11-16 15:45] VITALS: BMI 34.8
--- NOTE | 2017-11-16 17:36 | HP ---
REASON FOR ADMISSION: Possible drug reaction, possible transient ischemic attack. HISTORY OF PRESENTING ILLNESS: The patient got up around 1:30 in the morning with a feeling of her left side of her lips being swollen. She went to restroom to look in the mirror. She saw her left face being drooped and had some numbness to her chin with her lips being swollen. The patient went back to bed thinking this might go away. Around 5 in the morning when she woke up, it was still the same. She thought if she takes omeprazole, it might come down as she had some reflux symptoms as well. The patient started to itch all over, but more so in her thighs. She took Children's Benadryl and after a while the itching resolved. By the time she arrived in the ER, her left facial droop and the swelling of her lips and inner cheeks had completely resolved. Currently, she has no complaints of chest pain, palpitation, PND or orthopnea. The only new medication she is on is tizanidine, which she has been taking for pain for her recent T2 spine surgery done 2 weeks back. No complaints of cough or expectoration. Patient ambulates by herself. PAST MEDICAL AND SURGICAL HISTORY: History of fibromyalgia, hypertension, dyslipidemia, bladder suspension surgery, cholecystectomy, hysterectomy, bilateral knee surgery, bilateral shoulder surgery, C7-T1 hemilaminotomy and foraminotomy for decompression of C8 nerve root, the same done for T1-T2 for decompression of T1 nerve, all of this were done on 11/04/[address] Duran. CURRENT MEDICATIONS: The patient is on omeprazole p.r.n., Naprosyn p.r.n., MiraLax 17 grams p.o. daily p.r.n., Lopressor 12.5 mg twice daily, Lasix 20 mg daily, potassium chloride 99 mg daily, tizanidine 4 mg p.o. q.8 hourly p.r.n., calcium with vitamin D3 one tab daily. ALLERGIES: Multiple medications including KEFLEX, ENALAPRIL, GABAPENTIN, HYDROCODONE, LOSARTAN, MEPERIDINE, SULFA. PERSONAL HISTORY: Does not abuse alcohol or drugs. No history of smoking. Lives with her . Her is currently hospitalized for atrial fibrillation. FAMILY HISTORY: Mother at the age of 82 years. She has had history of CVA. Father had developed CVA with aneurysm rupture and at the age of 48 years. He has had history of pancreatitis as well. REVIEW OF SYSTEMS: The following complete review of systems was negative, unless otherwise mentioned in the HPI or below: Constitutional: Weight loss or gain, ability to conduct usual activities. Skin: Rash, itching. Eyes: Double vision, pain. ENT/Mouth: Nose bleeding, neck stiffness, pain, tenderness. Cardiovascular: Palpitations, dyspnea on exertion, orthopnea. Respiratory: Shortness of breath, wheezing, cough, hemoptysis, fever or night sweats. Gastrointestinal: Poor appetite, abdominal pain, heartburn, nausea, vomiting, constipation, or diarrhea. Genitourinary: Urgency, frequency, dysuria, nocturia. Musculoskeletal: Pain, swelling. Neurologic/Psychiatric: Anxiety, depression. Allergy/Immunologic: Skin rash, bleeding tendency. PHYSICAL EXAMINATION: GENERAL: The patient is a 77-year-old female who is currently not in any acute distress. VITAL SIGNS: Blood pressure 142/78, pulse 78 per minute, respiratory rate 18 per minute, saturating 98% on room air, temperature is 98.1 degrees Fahrenheit. NECK: Supple, no elevated JVD. EYES: Extraocular muscles intact. Pupils reacting to light. ORAL CAVITY: Mucous membranes are moist. No exudates or congestion. There is no obvious exudate or edema in the oral cavity, including tongue. CARDIOVASCULAR SYSTEM: S1 and S2 heard. Regular rhythm. RESPIRATORY SYSTEM: Air entry 2+ bilateral. No rales or rhonchi. ABDOMEN: Soft, bowel sounds heard. No tenderness, rigidity or guarding. EXTREMITIES: No peripheral edema or calf tenderness. VASCULAR SYSTEM: Peripheral pulses 1+ bilateral, no ischemic ulcerations or gangrene. CENTRAL NERVOUS SYSTEM: No gross focal deficits seen. Patient is alert, awake , and oriented well. PSYCHIATRIC SYSTEM: The patient's mood is euthymic. No hallucinations or delusions. LABORATORY DATA AND X-RAY FINDINGS: EKG done shows normal sinus rhythm at 69 beats per minute, no gross ST-T wave changes. CT brain done showed no acute intracranial findings. UA is negative for any infection. Electrolytes are stable. BUN 22, creatinine 1.0, serum glucose 97. Electrolytes are stable. First set of cardiac enzymes are negative. Albumin is 3.7. White count of 9, hemoglobin and hematocrit 11 and 33, platelet count 322 with 70% neutrophils, MCV is 99. CLINICAL IMPRESSION AND PLAN: The patient will be under observation on the stroke unit for possible TIA versus allergic reaction with left facial droop and swelling of lips and inner cheeks at home, but none on arrival here. She will be on a small dose of prednisone and we will continue her aspirin and Lopressor along with Pepcid as before. Patient has a recent thoracic spine surgery with likely hardware and most likely we will not be able to obtain an MRI. She will be closely monitored on the stroke unit to see for any recurrence of her symptoms. The patient is also advised and counseled to have outpatient allergy medical billing service appointment in 4-6 weeks once all the ruben were removed from her thoracic spine surgery. She is otherwise hemodynamically stable and likely will be discharged in the morning. DONNELL
[2017-11-16] MEDS ORDERED: diphenhydrAMINE 25 MG CAP PO SCH (18:30)
[2017-11-16 19:04] LABS: Troponin I 0.011 ng/mL (< 0.028)
[2017-11-16] MEDS ORDERED: Prevnar 13-Val Conj/PF 0.5 ML SYRINGE IM ONE (21:00)
[2017-11-16] MEDS: Famotidine 20 MG TAB PO SCH (21:11)
[2017-11-16] MEDS: Metoprolol Tartrate 25 MG TAB PO SCH (21:11)
[2017-11-17 05:52] LABS: #Monocytes 0.2 thou/uL (0.11-0.59); #Neutrophils 5.8 thou/uL (1.40-6.50); %Basophils 0.3 % (0.0-1.0); %Eosinophils 0.5 % (0.0-10.0); %Lymphocytes 13.9 % (21.0-51.0); %Monocytes 3.5 % (0.0-10.0); %Neutrophils 81.9 % (42.0-75.0); Hemoglobin 10.8 g/dL (12.0-16.0); Mean Corpuscular HGB CONC 33.9 g/dL (32.0-36.0); Mean Corpuscular Hemoglobin 32.8 pg (27.0-31.0); Mean Corpuscular Volume 96.6 fl (81.0-99.0); Mean Platelet Volume 8.2 fL (7.4-10.4); Platelet Count 272 thou/uL (130-400); RBC Distribution Width 12.1 % (11.5-14.5); Red Blood Cell (RBC) Count 3.29 mill/uL (4.20-5.40)
[2017-11-17 06:26] LABS: Anion Gap 10 mmol/L (10-20); BUN (Urea Nitrogen) 18 mg/dL (9.8-20.1); Calc. Creatinine Clearance 75 mL/min (70-130); Calcium 9.2 mg/dL (7.8-10.44); Carbon Dioxide 27 mmol/L (23-31); Cardiac Risk 4.2 (Less than 4.5); Chloride 106 mmol/L (98-107); Cholesterol 176 mg/dl (< 200 Desired); Estimated GFR-MDRD 64; Glucose 132 mg/dL (83-110); HDL Cholesterol 42 mg/dL (>60 Neg Risk); LDL Cholesterol, Calculated 117 mg/dL; Potassium 4.5 mmol/L (3.5-5.1); Sodium 138 mmol/L (136-145); Triglycerides 83 mg/dL (Less than 150)
[2017-11-17] MEDS ORDERED: predniSONE 20 MG TAB PO SCH (08:00)
[2017-11-17] MEDS: Metoprolol Tartrate 25 MG TAB PO SCH (08:20)
[2017-11-17] MEDS: Famotidine 20 MG TAB PO SCH (08:20)
[2017-11-17] MEDS ORDERED: Aspirin 81 mg Enteric Coated Tablet PO SCH (09:00)
[2017-11-17] MEDS ORDERED: Enoxaparin Sodium 40 MG/0.4 ML SYRINGE SC SCH (09:00)
--- NOTE | 2017-11-17 11:13 | PDOC.PN ---
- Subjective Encounter Start Date: 11/17/17 Encounter Start Time: 09:00 Subjective: no dizziness, weakness or chest pain -: is amb in room without any assistance - Objective Resuscitation Status: Resuscitation Status FULL:Full Resuscitation MAR Reviewed: Yes Vital Signs & Weight: Vital Signs (12 hours) Temp Pulse Resp BP BP BP Pulse Ox 11/17/17 08:20 97.6 F 64 16 139/70 96 11/17/17 07:15 97.6 F 64 16 190/99 H 96 11/17/17 06:20 98.6 F 67 18 154/82 H 96 11/17/17 00:00 98.4 F 62 12 134/59 L 95 Weight Weight 184 lb 7 oz I&O: 11/16/17 11/17/17 11/18/17 06:59 06:59 06:59 Intake Total 302 Balance 302 Result Diagrams: 11/17/17 05:00 11/17/17 05:00 Phys Exam - Physical Examination HEENT: PERRLA, moist MMs Neck: no JVD, supple Respiratory: no wheezing, no rales Cardiovascular: RRR, no significant murmur Gastrointestinal: soft, non-tender, positive bowel sounds Musculoskeletal: no edema, pulses present Neurological: non-focal, moves all 4 limbs Psychiatric: normal affect, A&O x 3 Dx/Plan (1) TIA (transient ischemic attack) Status: Resolved Qualifiers: Transient cerebral ischemia type: unspecified Qualified Code(s): G45.9 - Transient cerebral ischemic attack, unspecified (2) Drug reaction Code(s): T88.7XXA - UNSP ADVERSE EFFECT OF DRUG OR MEDICAMENT, INIT ENCNTR Status: Resolved (3) Dyslipidemia Code(s): E78.5 - HYPERLIPIDEMIA, UNSPECIFIED Status: Chronic (4) Fibromyalgia Status: Chronic (5) HTN (hypertension) Code(s): I10 - ESSENTIAL (PRIMARY) HYPERTENSION Status: Chronic Qualifiers: Hypertension type: essential hypertension - Plan asp, crestor -: hemo/neurostable without any deficits -: d/w daughter and patient -: dc pt home * .
[2017-11-17 11:40] VITALS: BP 148/75; TEMP 98
--- NOTE | 2017-11-17 14:08 | DIS ---
DATE OF ADMISSION: 11/16/2017 DATE OF DISCHARGE: 11/17/2017 DISCHARGE DISPOSITION: To home. PRIMARY DISCHARGE DIAGNOSES: Possible transient ischemic attack with facial palsy, resolved; drug reaction, resolved. SECONDARY DISCHARGE DIAGNOSES: Dyslipidemia, fibromyalgia, hypertension. PROCEDURES DONE DURING HOSPITALIZATION: CT brain done showed no acute intracranial abnormalities. H and H 11 and 32, platelet count 272, MCV is 96, LDL 117, total cholesterol 176, triglycerides 83, HDL 42. Troponin x3 is negative. DISCHARGE MEDICATIONS: Aspirin 81 mg p.o. daily, Crestor 5 mg p.o. at bedtime, Lasix 10 mg p.o. daily, potassium 99 mg p.o. daily, MiraLax p.r.n., Lopressor 12.5 mg p.o. twice daily, Motrin p.r.n. for pain, vitamin D3 2000 units p.o. daily. ALLERGIES: Allergic to KEFLEX, ENALAPRIL, GABAPENTIN, LOSARTAN, MEPERIDINE, SULFA. DISCHARGE PLAN: Patient to follow up with primary care physician in 1 week. BRIEF COURSE DURING HOSPITALIZATION: Patient initially came to ER with complaints of left facial droop and swelling of her tongue and cheek. She also had itching all over, but worse over the thigh and leg area. She attributed this to taking omeprazole prior. In view of this history, the patient was placed under observation on stroke unit for possible TIA. All her symptoms had completely resolved by the time she arrived in the ER. She was closely monitored on the stroke unit. The patient is ambulating well and has no further issues with her tongue swelling, cheek swelling, or numbness. She is talking and expressing well and is at her baseline function. Patient is advised to follow up with an allergy automotive general sales manager in 4-6 weeks to check for allergens. The patient is also allergic to multiple medications. She has had recent C7-T1 and T1-T2 decompression done and still has ruben on the upper back. She needs to follow up with Dr. Duran for staple removal as before. She has been placed on a small dose of Crestor to see if she tolerates and primary care physician is to slowly escalate this to 10-20 mg. She is hemodynamically and neurologically stable for discharge today. Please see face to face documentation on [facility] for the day of discharge. [facility]
[2017-11-17] MEDS ORDERED: Rosuvastatin 5 MG TAB PO SCH (21:00)
--- NOTE | 2017-11-22 20:42 | EKG ---
Test Reason : Blood Pressure : / mmHG Vent. Rate : 069 BPM Atrial Rate : 069 BPM P-R Int : 160 ms QRS Dur : 080 ms QT Int : 406 ms P-R-T Axes : 020 050 045 degrees QTc Int : 435 ms Normal sinus rhythm Normal ECG Confirmed by ANGELICA RAM ([id number]), editor book LYNN QIU ([id number]) on 11/22/2017 8:41:21 PM Referred By: Confirmed By:ANGELICA ARM
== END 2017-11-17 12:45 | disposition home or self-care (01) ==
LOC: ERS 11:28 → 2SE 13:24
PROVIDERS: ADMIT Internal Medicine; ATTEND Internal Medicine
DX: R29.810 Facial weakness (principal); R22.0 Localized swelling, mass and lump, head; M79.7 Fibromyalgia; I10 Essential (primary) hypertension; E78.5 Hyperlipidemia, unspecified; Z79.82 Long term (current) use of aspirin; Z79.899 Other long term (current) drug therapy; Z88.1 Allergy status to other antibiotic agents; Z88.2 Allergy status to sulfonamides; Z88.5 Allergy status to narcotic agent; Z88.8 Allergy status to other drugs, medicaments and biological substances
CPT/HCPCS: 70450; 80048; 80053; 80061; 81003; 82553; 82962; 83735; 84484 ×2; 85025 ×2; 85610; 85730; 90670; 93005; 96372; 97139; 99285; G0009; G0378; 36415; 36416; 90471; J1650; J7506

== ENCOUNTER 2019-09-28 10:08 | Outpatient (CLI) | payer MEDICARE ==
--- NOTE | 2019-09-28 12:01 | MRI ---
MRI LUMBAR SPINE NONCONTRAST:: HISTORY: Low back pain, radiating into both hips. Recent fall. COMPARISON: 09/12/2011. FINDINGS: Heterogeneous marrow signal intensity of the lumbar vertebrae suggesting a component senescent change . Stable scoliotic curvature. There is evidence of type I and type II Modic change at the T12-L1 level. There is type II Modic change at L1-L2, L2-L3, L3-L4, L4-L5 and L5-S1. Lumbar spine vertebral body heights are maintained. There is no fracture. Mild edema involving the T12-L1 disc space compatible with type I Modic changes noted. No evidence of cyst ligamentous injury. Appropriate signal intensity visualized paraspinal muscles. No retroperitoneal mass, lymphadenopathy or hematoma. Visualized solid organs are unremarkable. Prominence of both renal pelvises. Conus medullaris terminates at the mid to lower aspect of L1. Spondylolisthesis: T12-L1: 1.2 mm of retrolisthesis. L1-L2: 2.4 mm of retrolisthesis. L2-L3: 2.8 mm of retrolisthesis. L5-S1: 6.1 mm of anterolisthesis. T 11-T12: Broad-based disc bulge, results in mild central canal stenosis. There does appear to be typ e I Modic change along the right aspect of the disc. Moderate right foraminal narrowing. Mild left foraminal narrowing. T12-L1:Desiccation with severe loss of disc space height. Broad-based disc bulge, ligamentum flavum t hickening and facet hypertrophy result in mild central canal stenosis. Moderate right neural foraminal narrowing. Patent left foraminal narrowing. L1-L2:Desiccation with severe loss of disc space height. Broad-based disc bulge, ligament flavum thic kening and facet hypertrophy result in mild central canal stenosis. Severe right and moderate left foraminal narrowing. L2-L3:Desiccation with moderate to severe loss of disc space height. Broad-based disc bulge, ligament flavum thickening and facet result in moderate central canal stenosis. Moderate to severe right and moderate left neural foraminal narrowing. L3-L4:Desiccation with severe loss of disc space height. Broad-based disc bulge, ligament flavum thic kening and facet hypertrophy result in mild central canal stenosis. Mild right and moderate to severe left foraminal narrowing. L4-L5:Desiccation with moderate to severe loss of disc space height. Broad-based disc bulge, ligament flavum thickening and facet hypertrophy result in mild central canal stenosis. Mild right and moderate to severe left foraminal narrowing. L5-S1:Disc desiccation with mild to moderate loss of disc space height. Broad-based disc bulge, ligam ent flavum thickening and facet hypertrophy result in mild to moderate central canal stenosis. There is narrowing of bilateral subarticular zones with partial obscuration of bilateral traversing S 1 nerve roots. Mild to moderate bilateral neural foraminal narrowing. IMPRESSION: 1. Multilevel degenerative changes of the lumbar spine as detailed above. Significant multilevel neur al foraminal narrowing as detailed above. 2. No fracture. 2. Spondylolisthesis as detailed above. Transcribed Date/Time: 09/28/2019 12:19 PM
== END 2019-09-28 10:09 | disposition home or self-care (01) ==
LOC: BICMRI 10:08
PROVIDERS: ATTEND Physician Assistant Surgical
DX: M47.26 Other spondylosis with radiculopathy, lumbar region (principal); M48.061 Spinal stenosis, lumbar region without neurogenic claudication; M48.07 Spinal stenosis, lumbosacral region; M43.16 Spondylolisthesis, lumbar region
CPT/HCPCS: 72148

== ENCOUNTER 2020-01-18 15:55 | Emergency (ER) | payer MEDICARE ==
[2020-01-18 17:46] LABS: #Basophils 0.1 thou/uL (0.0-0.2); #Monocytes 0.6 thou/uL (0.11-0.59); #Neutrophils 9.5 thou/uL (1.40-6.50); %Basophils 0.5 % (0.0-1.0); %Eosinophils 0.4 % (0.0-10.0); %Lymphocytes 16.1 % (21.0-51.0); %Monocytes 5.2 % (0.0-10.0); %Neutrophils 77.8 % (42.0-75.0); Hemoglobin 11.5 g/dL (12.0-16.0); Mean Corpuscular HGB CONC 32.8 g/dL (32.0-36.0); Mean Corpuscular Hemoglobin 32.2 pg (27.0-31.0); Mean Corpuscular Volume 98.1 fL (78.0-98.0); Mean Platelet Volume 10.2 fL (7.4-10.4); Platelet Count 162 thou/uL (130-400); RBC Distribution Width 13.3 % (11.5-14.5); Red Blood Cell (RBC) Count 3.57 mill/uL (4.20-5.40); White Blood Cell (WBC) Count 12.2 thou/uL (4.8-10.8)
[2020-01-18 18:09] LABS: ALT (SGPT) 10 U/L (8-55); AST (SGOT) 29 U/L (5-34); Albumin 3.7 g/dL (3.4-4.8); Alkaline Phosphatase 93 U/L (40-110); Anion Gap 12 mmol/L (10-20); BUN (Urea Nitrogen) 34 mg/dL (9.8-20.1); Bilirubin, Total 0.3 mg/dL (0.2-1.2); Calc. Creatinine Clearance 0 mL/min (70-130); Calcium 9.5 mg/dL (7.8-10.44); Carbon Dioxide 28 mmol/L (23-31); Chloride 103 mmol/L (98-107); Estimated GFR-MDRD 44; Globulin 2.6 g/dL (2.4-3.5); Glucose 111 mg/dL (83-110); Potassium 3.8 mmol/L (3.5-5.1); Protein, Total 6.3 g/dL (6.0-8.3); Sodium 139 mmol/L (136-145)
--- NOTE | 2020-01-22 14:10 | EKG ---
Test Reason : Blood Pressure : / mmHG Vent. Rate : 076 BPM Atrial Rate : 076 BPM P-R Int : 168 ms QRS Dur : 084 ms QT Int : 384 ms P-R-T Axes : 021 002 043 degrees QTc Int : 432 ms Sinus rhythm with Premature supraventricular complexes Voltage criteria for left ventricular hypertrophy Inferior infarct , age undetermined Abnormal ECG Confirmed by NORAH PRESTON DO ([id number]), editor in chief FAVIAN CORDERO ([id number]) on 01/22/2020 2:10:21 PM Referred By: Confirmed By:NORAH PRESTON DO
== END 2020-01-18 19:50 | disposition home or self-care (01) ==
LOC: ERS 15:55
DX: R55 Syncope and collapse (principal); I10 Essential (primary) hypertension; M79.7 Fibromyalgia; E78.5 Hyperlipidemia, unspecified
CPT/HCPCS: 80053; 84484; 85025; 93005; 96360

== ENCOUNTER 2020-06-13 16:08 | Inpatient (IN) | payer MEDICARE, OTHER ==
[2020-06-13] MEDS ORDERED: Morphine 4 MG/ML VIAL ONE ×2 (16:28→17:43)
[2020-06-13] MEDS ORDERED: Ondansetron PF 4 MG/2 ML Vial ONE (16:29)
[2020-06-13 16:50] LABS: #Basophils 0.1 thou/uL (0.0-0.2); #Lymphocytes 1.8 thou/uL (1.20-3.40); #Monocytes 0.3 thou/uL (0.11-0.59); #Neutrophils 7.1 thou/uL (1.40-6.50); %Basophils 0.7 % (0.0-1.0); %Eosinophils 0.4 % (0.0-10.0); %Lymphocytes 18.9 % (21.0-51.0); %Monocytes 3.7 % (0.0-10.0); %Neutrophils 76.3 % (42.0-75.0); Mean Corpuscular HGB CONC 33.9 g/dL (32.0-36.0); Mean Corpuscular Hemoglobin 31.7 pg (27.0-31.0); Mean Corpuscular Volume 93.4 fL (78.0-98.0); Mean Platelet Volume 11.4 fL (7.4-10.4); Platelet Count 195 thou/uL (130-400); RBC Distribution Width 13.5 % (11.5-14.5); Red Blood Cell (RBC) Count 4.42 mill/uL (4.20-5.40); White Blood Cell (WBC) Count 9.3 thou/uL (4.8-10.8)
[2020-06-13] MEDS ORDERED: Lorazepam 2 MG/ML VIAL ONE (18:07)
[2020-06-13] MEDS ORDERED: HYDROmorphone 0.5 MG/0.5 ML SYRINGE ONE ×2 (18:09→18:10)
[2020-06-13 18:14] LABS: ALT (SGPT) 19 U/L (8-55); AST (SGOT) 18 U/L (5-34); Alkaline Phosphatase 101 U/L (40-110); Anion Gap 13 mmol/L (10-20); BUN (Urea Nitrogen) 17 mg/dL (9.8-20.1); Bilirubin, Total 0.4 mg/dL (0.2-1.2); CK (CPK) 70 U/L (29-168); Calc. Creatinine Clearance 0 mL/min (70-130); Calcium 10.3 mg/dL (7.8-10.44); Carbon Dioxide 25 mmol/L (23-31); Chloride 105 mmol/L (98-107); Estimated GFR-MDRD 65; Glucose 107 mg/dL (83-110); Potassium 4.7 mmol/L (3.5-5.1); Sodium 138 mmol/L (136-145)
--- NOTE | 2020-06-13 21:02 | MRI ---
MRI LUMBAR SPINE WITH AND WITHOUT CONTRAST: 06/13/20 INDICATIONS: Back pain. Pain after receiving a back injection today. Comparison made to MRI lumbar spine dated 09/28/19. FINDINGS: Prominent degenerative changes of the Lumbar spine again noted. There is loss of disc space at all le vels. Degenerative end plate changes are prominent at T12-L1 but are stable from the prior exam. The re are anterior osteophytes and posterior spondylosis and disc bulge at multiple levels which appear stable from 09/28/19. There is a mass density seen in the posterior spinal canal in the midline which extends from the lev el of the T11-12 disc inferiorly to the upper level 1 vertebra. This extends over a 3.5 cm craniocaud al length. This abnormality measures approximately 1.0 cm AP dimension in the axial plane. This does compress the posterior cord. Postcontrast images show mild peripheral enhancement surrounding this lesion. No significant internal enhancement. At T11-12, there is a diffuse disc bulge with mild central canal stenosis. At T12-L1, there is a broad based disc bulge with facet hypertrophy compressing the thecal sac and th e conus. The posterior epidural mass also compresses the conus from posterior resulting in moderate c entral canal stenosis and cord compression. At L1-2, broad based disc bulge and facet hypertrophy. A small disc protrusion unchanged from the pr ior exam. Mild central canal stenosis. At L2-3, diffuse disc bulge and facet hypertrophy with mild to moderate central canal stenosis, uncha nged. At L3-4, moderate central canal stenosis from disc bulge and hypertrophic change. Foraminal stenosis on the left. At L4-5, disc bulge and hypertrophic change results in moderate central canal stenosis and left olga inal stenosis. At L5-S1, slight anterolisthesis with broad based disc bulge. Facet hypertrophy. Moderate central can al stenosis and bilateral foraminal stenosis. IMPRESSION: 1. There is a mass lesion in the posterior spinal canal extending from T11-T12 disc to the upper L1 vertebra with dimensions given above. This is well circumscribed. There is peripheral enhancement . Findings most likely represent acute epidural hematoma given the history of injection procedure tod ay. Epidural abscess is not excluded. 2. Multilevel degenerative disc changes with central canal and foraminal stenosis at multiple l evels which appear stable from the prior exam of 2/11/20. Findings were relayed to Dr. Marcos by phone at time of the dictation. POS: [facility]
--- NOTE | 2020-06-13 22:56 | PDOC.FPRHP ---
- History of Present Illness Chief Complaint: Lower back pain History of Present Illness: Patient is a 79 year old female with a history of DDD, HTN and fibromyalgia who presents to the ED with complains of lower back pain without radiation since undergoing spinal injection this am by Dr. Miles. The patient reports worsening pain since the procedure but denies weakness, numbness, tingling, and incontinence. She has undergone spinal injections previously without complications. She denies headache, vision changes, dizziness, chest pain and SOB. She reports great improvement in her pain since arrival to the ED. ED Course: In ED received dilaudid 1mg, morphine 8mg, lorazepam 1mg x2 , zofran 4mg. MRI: T12-L1 epidural hematoma with compression on cord. Neurosurgery was consulted by ED physician and reported no intervention would be taken tonight. - Allergies/Adverse Reactions Allergies Allergy/AdvReac Type Severity Reaction Status Date / Time cephalexin monohydrate Allergy Verified 11/07/19 13:24 [From Keflex] enalapril [Enalapril] Allergy THROAT Verified 11/07/19 13:24 SWELLED gabapentin Allergy ITCHING Verified 11/07/19 13:24 hydrocodone Allergy ITCHING Verified 11/07/19 13:24 losartan Allergy muscle Verified 11/07/19 13:24 cramps meperidine Allergy Emesis Verified 11/07/19 13:24 Sulfa (Sulfonamide Allergy ITCHING Verified 11/07/19 13:24 Antibiotics) - Home Medications Medication Instructions Recorded Confirmed Type Cholecalciferol (Vitamin D3) 2,000 unit PO QAM 10/27/17 06/14/20 History [Vitamin D3] Furosemide 10 mg PO QAM 10/27/17 06/14/20 History Potassium 99 mg PO QAM 10/27/17 06/14/20 History Ibuprofen [Motrin] 400 mg PO Q6HR PRN 11/16/17 06/14/20 History diphenhydrAMINE HCl [Children's 12.5 mg PO PRN PRN 11/16/17 06/14/20 History Benadryl Allergy] Aspirin [Ecotrin Low Strength] 81 mg PO DAILY #30 tab 11/17/17 06/14/20 Rx hydrALAZINE [Apresoline] 25 mg PO TID 06/14/20 06/14/20 History - History PMHx: HTN, fibromyalgia, DDD, arthritis, fibromyalgia PSHx: both knees, both shoulders, hysterectomy, cholecystectomy FHx: Noncontributory Social: Lives at home with . Denies hx of tobacco use, alcohol use and drug use. - Review of Systems General: denies: fever/chills, fatigue Eyes: denies: vision changes ENT: denies: nasal congestion, rhinorrhea Respiratory: denies: cough, shortness of breath Cardiovascular: denies: chest pain, palpitation, edema Gastrointestinal: denies: nausea, abdominal pain Genitourinary: denies: dysuria, polyuria Skin: denies: rashes Musculoskeletal: reports: pain (lower back pain), arthritis/arthralgias (chronic). denies: swelling Neurological: denies: numbness, syncope, seizure, weakness Psychological: denies: anxiety, depression - Vital signs BP: [128/72] HR: [56] RR: [16] Tmax: [98] Pox: [97]% on [RA] Wt: [78kg] - Physical Exam Constitutional: NAD, awake, alert and oriented -Constitutional: Sleepy HEENT: normocephalic and atraumatic, no scleral icterus, MMM Neck: FROM, trachea midline Chest: no-tender to palpation Heart: RRR, no edema -Heart: Systolic murmur present Lungs: CTAB, no respiratory distress, good air movement Abdomen: soft, non-tender, bowel sounds present Musculoskeletal: ROM grossly normal -Neurological: Strength 4/5 bilateral lower extremities Skin: no rash/lesions Psychiatric: normal mood and affect FMR H&P: Results - Labs Result Diagrams: 06/15/20 04:20 06/13/20 17:35 Lab results: WBC 9.3 thou/uL (4.8-10.8) 06/13/20 16:39 Hgb 14.0 g/dL (12.0-16.0) 06/13/20 16:39 Hct 41.3 % (36.0-47.0) 06/13/20 16:39 MCV 93.4 fL (78.0-98.0) 06/13/20 16:39 Plt Count 195 thou/uL (130-400) 06/13/20 16:39 Neutrophils % 76.3 % (42.0-75.0) H 06/13/20 16:39 Sodium 138 mmol/L (136-145) 06/13/20 17:35 Potassium 4.7 mmol/L (3.5-5.1) 06/13/20 17:35 Chloride 105 mmol/L (98-107) 06/13/20 17:35 Carbon Dioxide 25 mmol/L (23-31) 06/13/20 17:35 BUN 17 mg/dL (9.8-20.1) 06/13/20 17:35 Creatinine 0.85 mg/dL (0.6-1.1) 06/13/20 17:35 Glucose 107 mg/dL (83-110) 06/13/20 17:35 Calcium 10.3 mg/dL (7.8-10.44) 06/13/20 17:35 Total Bilirubin 0.4 mg/dL (0.2-1.2) 06/13/20 17:35 AST 18 U/L (5-34) 06/13/20 17:35 ALT 19 U/L (8-55) 06/13/20 17:35 Alkaline Phosphatase 101 U/L (40-110) 06/13/20 17:35 Creatine Kinase 70 U/L (29-168) 06/13/20 17:35 Serum Total Protein 7.0 g/dL (6.0-8.3) 06/13/20 17:35 Albumin 4.0 g/dL (3.4-4.8) 06/13/20 17:35 FMR H&P: A/P - Plan Epidural hematoma Underwent lumbar epidural steroid 06/13. MRI showed T12-L1 epidural hematoma with compression on cord. Neurosurgery consulted in ED. -Admit to stroke unit -F/u neurosurgery recs in am -Neuro checks -Monitor for pain HTN -Med rec with pharmacy in am as patient does not know regimen -PRN labetolol, hydralazine Fibromyalgia -Aware DDD -Undergone multiple spinal injections in the past due to chronic pain Code: FULL Dispo: admit to stroke floor, expected LOS > 48 hours FMR H&P: Upper Level - Plan Date/Time: 06/13/20 [id number] Gricel Chua, have evaluated this patient and agree with findings/plan as outlined by international tax manager resident. Pertinent changes/additions are listed here. 79 yo F presented to ED for pain/weakness of low back. She had an epidural haydee roid injection at Dr. Miles, her PCP, today at 2pm. She reports pain immediately post injection and difficulty walking. They returned home and pain continued to worsen. Pain was excruciating, with lower extremity weakness reported, prompting her presentation. She feels better after receiving morphine in ED. She has had multiple injections in the past without difficulty. Patient denies numbness, tingling. PMH includes fibromyalgia, HTN, OA In ED received dilaudid 1mg, morphine 8mg, lorazepam 1mg x2 , zofran 4mg MRI: T12-L1 epidural hematoma with compression on cord PE: Gen: NAD HEENT: Moist MM Heart: RRR, systolic ejection murmur Lungs: CTAB, no wheezing. No increased work of breathing Abd: soft, nontender, BS+, no masses or hernias Ext: no edema, strength 4/5 BLE Epidural hematoma - s/p lumbar epidural steroid 06/13 - Neurosurgery consulted from ED, appreciate recommendations - Neuro checks - No significant neuro exam findings on admission - Will add medications as needed for pain control Attending: True PCP: Jd Code: FULL Dispo: admit to stroke floor Addendum - Attending - Attending Attestation Date/Time: 06/13/20 1469 I personally evaluated the patient and discussed the management with resident team I agree with the History, Examination, Assessment and Plan documented above with any addition or exceptions noted below. 79 yo female admitted for epidural hematoma s/p epidural injections. Neuro surg consulted and has place recommendations. Will follow up throughout stay. No deficits at this time. Only pain reported now. Continue to perform neuro checks throughout the night. Neurosurg to be called. Sridhar
[2020-06-13] MEDS ORDERED: Dexamethasone 4 mg/ml Vial SLOW IVP SCH (23:00)
[2020-06-13] MEDS ORDERED: Labetalol HCl 100 MG/20 ML VIAL SLOW IVP PRN (23:03)
[2020-06-13] MEDS ORDERED: hydrALAZINE 20 MG/ML VIAL SLOW IVP PRN (23:03)
[2020-06-13] MEDS ORDERED: Ondansetron ODT 4 MG TAB PO PRN (23:09)
[2020-06-13] MEDS ORDERED: Ondansetron PF 4 MG/2 ML Vial IVP PRN (23:09)
--- NOTE | 2020-06-14 02:23 | CON ---
DATE OF CONSULTATION: 06/13/2020 CHIEF COMPLAINT: Low back pain, hip and leg pain, and leg weakness. HISTORY OF PRESENT ILLNESS: Ms. Jha is a very pleasant 79-year-old female who presented to the emergency department today following onset of excruciating low back pain, hip and leg pain, and leg weakness following a lumbar epidural steroid injection she received earlier today. The patient underwent an L1-L2 interlaminar epidural steroid injection with Dr. Miles this morning. She reports afterwards she had increased low back pain and had difficulty with standing or walking. She reports pain primarily in the hips, greater on the right. She has pain down right leg with movements. After being observed in Dr. Miles's office, she returned home. She began to experience increased low back pain that she describes as excruciating as well as pain into both legs and significant leg weakness. She reports inability to ambulate secondary to pain and weakness. She was instructed by Dr. Miles's office to present to the emergency department for further evaluation and workup. An MRI of the lumbar spine was completed which revealed epidural hematoma at T12-L1 with effacement of the subarachnoid space and dural tube, but no signal abnormality of the spinal cord. PAST MEDICAL HISTORY: Pertinent for hypertension, hyperlipidemia, fibromyalgia. MEDICATIONS: She takes 81 mg aspirin daily, but no other blood thinners. PHYSICAL EXAMINATION: The patient was drowsy throughout the encounter; however she alerts to verbal stimulus. She responds to questions appropriately. At the time of my evaluation in the emergency department, she was resting comfortably in bed in no acute painful distress. Pupils are equal, round, and reactive to light bilaterally. Extraocular movements are intact. Cranial nerves 2 through 12 are grossly intact. She exhibits good range of motion of her bilateral lower extremities; however, this is somewhat limited secondary to pain, particularly on the right. She has 5/5 strength throughout her bilateral lower extremity myotomes, with exception of the right hamstrings in which strength testing was limited secondary to pain. There is at a minimum 4/5 strength in the right hamstring myotome. Her sensation to light touch is intact and equal bilaterally from the T10 to the S1 dermatomes. Gait was not assessed. IMPRESSION/DIAGNOSES: 1. Thoracolumbar epidural hematoma, status post lumbar interlaminar epidural steroid injection. 2. Low back pain. 3. Thoracolumbar radiculopathy. 4. History of hypertension. 5. History of hyperlipidemia. 6. On 81 mg aspirin daily. PLAN: Case was discussed and imaging reviewed with Dr. Duran. MRI of the lumbar spine completed in the emergency department reveals thoracolumbar epidural hematoma at the T12-L1 level with effacement of the subarachnoid space and dural tube but no signal abnormality of the spinal cord. Given the patient's current exam and low postvoid residual, our team does not feel emergent neurosurgical intervention for epidural hematoma evacuation is indicated at this time. The patient will be admitted to the Stroke Unit for neurologic checks every 2 hours and pain control. Neurosurgery should be contacted should the patient develop increased weakness throughout any of her lower extremity myotomes. Discussed with the patient and her that should she decline neurologically, our team may have to intervene surgically to evacuate her epidural hematoma. They voiced understanding. Our team will contact Dr. Miles tomorrow to update him of the patient's status. Again, please call for any neurologic changes or other concerns. This was a 50-minute initial consult in which greater than 50% of the time was spent in review of records, review of imaging, evaluation, examination, and formulation of a plan. Remaining time was spent in counseling and coordination of care. Job ID: [id number] MTDD
[2020-06-14 04:02] VITALS: BMI 32.5
[2020-06-14 05:10] LABS: #Lymphocytes 0.7 thou/uL (1.20-3.40); #Monocytes 0.1 thou/uL (0.11-0.59); %Basophils 0.4 % (0.0-1.0); %Lymphocytes 9.2 % (21.0-51.0); %Monocytes 0.7 % (0.0-10.0); %Neutrophils 89.7 % (42.0-75.0); Mean Corpuscular HGB CONC 33.2 g/dL (32.0-36.0); Mean Corpuscular Hemoglobin 31.7 pg (27.0-31.0); Mean Corpuscular Volume 95.6 fL (78.0-98.0); Mean Platelet Volume 10.2 fL (7.4-10.4); Platelet Count 179 thou/uL (130-400); RBC Distribution Width 13.2 % (11.5-14.5); White Blood Cell (WBC) Count 7.8 thou/uL (4.8-10.8)
[2020-06-14] MEDS ORDERED: Morphine 2 MG/ML VIAL SLOW IVP PRN (07:29)
[2020-06-14] MEDS ORDERED: hydrALAZINE 20 MG/ML VIAL SLOW IVP SCH (09:15)
[2020-06-14] MEDS: Acetaminophen/Codeine 30-300mg Tablet PO PRN ×2 (09:36→17:04)
[2020-06-14 10:37] LABS: SARS-CoV-2 MS2 Positive; SARS-CoV-2 N Gene Negative; SARS-CoV-2 S Gene Negative; SARS-CoV-2 by NAA Not Detected (NotDetected); SARS-CoV-2 orf1ab Negative
--- NOTE | 2020-06-14 10:52 | PRG ---
DATE OF SERVICE: 06/14/2020 This is a 30-minute initial visit note, in which 30 minutes were spent reviewing the imaging record, evaluation and examination of the patient, formulation of plan. Greater than 50% of the time was spent in counseling on Morena Jha. Ms. Jha is a 79-year-old woman, well known to Dr. Miles and she underwent L1-L2 interlaminar epidural steroid injection. She presented with increased low back pain and pain into the hips, in particular the right side, with paresthesias in the legs. She presented to the emergency department and was evaluated following MRI. MRI demonstrates perhaps a combination of injection or hematoma, this is very focal, and while it does efface the subarachnoid space and the dural tube, it does not flatten the spinal cord nor is any signal abnormality in the cord. The patient presented with 4/5 strength throughout her lower extremity myotomes, but with pain in the form of dysesthesias. She did not have an elevated PVR. She did not have a sensory level at the T12-L1 segment. This morning, she has had improvement to full strength. She states her pain has much improved. We will begin to mobilize her and then she will be able to be discharged. Job ID: [id number]
--- NOTE | 2020-06-14 12:05 | PDOC.HOSPP ---
- Subjective Encounter Date: 06/14/20 Encounter Time: 12:05 Subjective: Patient was seen and examined in bed. She was in pain therefore steady in bed with minimal movement. Otherwise denies any chest pain or shortness of breath No acute events overnight. - Objective Vital Signs & Weight: Vital Signs (12 hours) Temp Pulse Resp BP BP Pulse Ox 06/14/20 09:38 62 06/14/20 08:00 97.4 F L 62 16 165/74 H 95 06/14/20 04:00 97.1 F L 65 18 193/91 H 97 Weight Weight 172 lb 8 oz I&O: 06/13/20 06/14/20 06/15/20 06:59 06:59 06:59 Output Total 350 Balance -350 Result Diagrams: 06/14/20 04:32 06/13/20 17:35 Hospitalist ROS - Medication Medications: Active Medications Generic Name Dose Route Start Last Admin Trade Name Freq PRN Reason Stop Dose Admin Acetaminophen/Codeine Phosphate 1 tab 06/14/20 07:27 06/14/20 09:36 Acetaminophen/Codeine 30-300mg Tablet PO 1 tab Q6H PRN Administration Moderate Pain (4-6) Morphine Sulfate 2 mg 06/14/20 07:29 06/14/20 11:57 Morphine 2 Mg/Ml Vial SLOW IVP 06/15/20 07:30 2 mg ONE PRN Administration Severe Pain (7-10) - Exam General Appearance: awake alert General - other findings: In mild distress due to pain Heart: RRR, no murmur, no gallops, normal peripheral pulses Respiratory: no wheezes, no rales, no ronchi, no tachypnea Gastrointestinal: soft, non-tender, non-distended, normal bowel sounds Extremities: no cyanosis, no clubbing, no edema Neurological: cranial nerve grossly intact Neurological - other findings: 55 and lower limbs, extent of movement limited due to pain Psychiatric: normal affect, A&O x 3 Hosp A/P - Plan This is a 79-year-old female patient with a history of chronic back pain admitted on account of epidural hematoma following spinal epidural injection for chronic back pain. Spinal epidural hematoma Pain seems to have improved since admission Lower limb power also improved We will continue on pain management and mobilization Continue every 2 neurochecks Neurosurgery following. Hypertension Blood pressure slightly increased Restart home blood pressure medications Monitor BP History of TIA Not on anticoagulation No deficits at the moment Continue monitoring. Chronic back pain Pain management as above VT prophylaxisSCD CODE STATUSfull code
[2020-06-14] MEDS: traMADol HCl 50 MG TAB PO PRN ×2 (12:07→20:17)
[2020-06-14] MEDS: Polyethylene Glycol 3350 17 GM Packet PO PRN (14:27)
[2020-06-14] MEDS: hydrALAZINE 25 MG TAB PO SCH ×2 (14:27→20:18)
[2020-06-14] MEDS ORDERED: Metoprolol Tartrate 25 MG TAB PO SCH (15:00)
[2020-06-14] MEDS: Morphine 2 MG/ML VIAL SLOW IVP PRN (22:39)
[2020-06-15] MEDS ORDERED: Dexamethasone 4 mg/ml Vial SLOW IVP SCH ×2 (00:15→16:30)
[2020-06-15] MEDS: Morphine 2 MG/ML VIAL SLOW IVP PRN ×5 (00:22→14:22)
[2020-06-15 05:02] LABS: #Lymphocytes 0.9 thou/uL (1.20-3.40); #Monocytes 0.2 thou/uL (0.11-0.59); #Neutrophils 9.4 thou/uL (1.40-6.50); %Eosinophils 0.2 % (0.0-10.0); %Lymphocytes 8.2 % (21.0-51.0); %Monocytes 1.7 % (0.0-10.0); %Neutrophils 89.9 % (42.0-75.0); Hemoglobin 12.2 g/dL (12.0-16.0); Mean Corpuscular HGB CONC 33.5 g/dL (32.0-36.0); Mean Corpuscular Volume 95.6 fL (78.0-98.0); Mean Platelet Volume 10.6 fL (7.4-10.4); Platelet Count 176 thou/uL (130-400); RBC Distribution Width 13.4 % (11.5-14.5); Red Blood Cell (RBC) Count 3.82 mill/uL (4.20-5.40); White Blood Cell (WBC) Count 10.4 thou/uL (4.8-10.8)
[2020-06-15] MEDS: Furosemide 20 MG TAB PO SCH (09:02)
[2020-06-15] MEDS: hydrALAZINE 25 MG TAB PO SCH ×3 (09:03→20:17)
[2020-06-15] MEDS: Polyethylene Glycol 3350 17 GM Packet PO PRN (09:03)
[2020-06-15] MEDS: traMADol HCl 50 MG TAB PO PRN (12:21)
[2020-06-15] MEDS: Acetaminophen/Codeine 30-300mg Tablet PO PRN (14:25)
--- NOTE | 2020-06-15 20:04 | PDOC.HOSPP ---
- Subjective Encounter Date: 06/15/20 Encounter Time: 11:00 Subjective: Patient was seen and examined in bed She complains of improved pain overnight with better movement of her legs without significant pain. She denied any chest pain or shortness of breath - Objective Vital Signs & Weight: Vital Signs (12 hours) Temp Pulse Resp BP Pulse Ox 06/15/20 15:18 97.7 F 72 12 166/79 H 97 06/15/20 14:23 73 06/15/20 12:00 98.2 F 73 12 144/67 H 98 06/15/20 09:03 73 Weight Weight 172 lb 8 oz I&O: 06/14/20 06/15/20 06/16/20 06:59 06:59 06:59 Intake Total 900 Output Total 400 Balance -400 900 Result Diagrams: 06/15/20 04:20 06/13/20 17:35 Hospitalist ROS - Medication Medications: Active Medications Generic Name Dose Route Start Last Admin Trade Name Freq PRN Reason Stop Dose Admin Acetaminophen/Codeine Phosphate 1 tab 06/14/20 07:27 06/15/20 14:25 Acetaminophen/Codeine 30-300mg Tablet PO 1 tab Q6H PRN Administration Moderate Pain (4-6) Dexamethasone 6 mg 06/15/20 16:30 06/15/20 16:37 Dexamethasone 4 Mg/Ml Vial SLOW IVP 06/16/20 00:05 6 mg NOW EUGENIE Administration Furosemide 10 mg 06/15/20 09:00 06/15/20 09:02 Furosemide 20 Mg Tab PO 10 mg QAM EUGENIE Administration Hydralazine HCl 25 mg 06/14/20 15:00 06/15/20 14:23 Hydralazine 25 Mg Tab PO 25 mg TID EUGENIE Administration Morphine Sulfate 2 mg 06/14/20 22:34 06/15/20 14:22 Morphine 2 Mg/Ml Vial SLOW IVP 2 mg Q3H PRN Administration Pain Polyethylene Glycol 17 gm 06/14/20 14:21 06/15/20 09:03 Polyethylene Glycol 3350 17 Gm Packet PO 17 gm DAILYPRN PRN Administration Constipation Tramadol HCl 50 mg 06/14/20 07:27 06/15/20 12:21 Tramadol Hcl 50 Mg Tab PO 50 mg Q6H PRN Administration Mild Pain (1-3) - Exam General Appearance: awake alert Eye: PERRL, anicteric sclera Heart: RRR, no murmur, no gallops, no rubs Respiratory: no wheezes, no rales, no ronchi, normal chest expansion Gastrointestinal: soft, non-tender, non-distended, normal bowel sounds Extremities: no cyanosis, no clubbing, no edema Neurological: cranial nerve grossly intact, normal sensation to touch, no weakness Musculoskeletal - other findings: Tenderness in lumbar region Hosp A/P - Plan This is a 79-year-old female patient with a history of chronic back pain admitted on account of epidural hematoma following spinal epidural injection for chronic back pain. Spinal epidural hematoma Pain seems to have improved since admissionhad a dose of Decadron earlier in the night. Lower limb power also improved We will continue on pain management and mobilization Continue every 2 neurochecks Neurosurgery following. Hypertension Blood pressure slightly increased Restart home blood pressure medications Monitor BP History of TIA Not on anticoagulation No deficits at the moment Continue monitoring. Chronic back pain Pain management as above VT prophylaxisSCD CODE STATUSfull code Addendum: Pain became worse during the day Added 60 mg IV Decadron DISH STACKER for pain reliefanesthesiology consulted Continue monitoring pain
[2020-06-15] MEDS ORDERED: Promethazine HCl 25 MG/ML VIAL IM PRN (20:52)
[2020-06-15] MEDS ORDERED: Ondansetron PF 4 MG/2 ML Vial IVP PRN (20:52)
[2020-06-15] MEDS ORDERED: Naloxone HCl 0.4 mg/ml Vial IV PRN (20:52)
[2020-06-15] MEDS ORDERED: Zolpidem Tartrate 5 MG TAB PO PRN (20:52)
[2020-06-15] MEDS ORDERED: diphenhydrAMINE 50 MG/ML VIAL IVP PRN (20:52)
[2020-06-15] MEDS ORDERED: diphenhydrAMINE 25 MG CAP PO PRN (20:52)
[2020-06-15] MEDS ORDERED: diphenhydrAMINE 50 MG/ML VIAL IM PRN (20:52)
[2020-06-15] MEDS ORDERED: Communication Order-Pharmacy FS SCH (21:00)
[2020-06-15] MEDS: fentaNYL Citrate/PF 2,000 MCG in Sodium Chloride 0.9% 60 ML IV PRN (23:49)
[2020-06-16 04:57] LABS: #Lymphocytes 1.2 thou/uL (1.20-3.40); #Monocytes 0.4 thou/uL (0.11-0.59); #Neutrophils 10.2 thou/uL (1.40-6.50); %Basophils 0.1 % (0.0-1.0); %Lymphocytes 10.1 % (21.0-51.0); %Monocytes 3.5 % (0.0-10.0); %Neutrophils 86.3 % (42.0-75.0); Hemoglobin 12.1 g/dL (12.0-16.0); Mean Corpuscular HGB CONC 33.1 g/dL (32.0-36.0); Mean Corpuscular Hemoglobin 31.4 pg (27.0-31.0); Mean Corpuscular Volume 95.1 fL (78.0-98.0); Mean Platelet Volume 10.4 fL (7.4-10.4); Platelet Count 184 thou/uL (130-400); RBC Distribution Width 13.3 % (11.5-14.5); Red Blood Cell (RBC) Count 3.86 mill/uL (4.20-5.40); White Blood Cell (WBC) Count 11.8 thou/uL (4.8-10.8)
[2020-06-16] MEDS: hydrALAZINE 25 MG TAB PO SCH ×3 (08:52→21:45)
[2020-06-16] MEDS: Acetaminophen 325 MG TAB PO PRN (08:53)
[2020-06-16] MEDS: Polyethylene Glycol 3350 17 GM Packet PO PRN (08:53)
[2020-06-16] MEDS ORDERED: Dexamethasone 6 MG in Sodium Chloride 0.9% 50 ML IVPB SCH (09:00)
[2020-06-16 09:20] LABS: Anion Gap 15 mmol/L (10-20); BUN (Urea Nitrogen) 30 mg/dL (9.8-20.1); Calc. Creatinine Clearance 64 mL/min (70-130); Carbon Dioxide 23 mmol/L (23-31); Chloride 103 mmol/L (98-107); Estimated GFR-MDRD 60; Glucose 108 mg/dL (83-110); Sodium 137 mmol/L (136-145)
[2020-06-16] MEDS ORDERED: Esmolol 100 MG/10 ML VIAL ONE (10:18)
[2020-06-16] MEDS ORDERED: Glycopyrrolate 0.2 MG/ML 5 ML SYRINGE ONE (10:18)
[2020-06-16] MEDS ORDERED: Ondansetron PF 4 MG/2 ML Vial ONE (10:18)
[2020-06-16] MEDS ORDERED: Lidocaine 1% PF 5 ML VIAL ONE (10:18)
[2020-06-16] MEDS ORDERED: Rocuronium Bromide 10 MG/ML (10ML VIAL) ONE (10:18)
[2020-06-16] MEDS ORDERED: PROPOFOL 200 MG/20 ML VIAL ONE (10:18)
[2020-06-16] MEDS: Furosemide 20 MG TAB PO SCH (11:50)
[2020-06-16] MEDS: Dexamethasone 10 MG/ML VIAL SLOW IVP SCH (11:54)
[2020-06-16] MEDS ORDERED: Clindamycin/D5W 900 MG in Premix Bag 1 BAG IVPB SCH (12:00)
[2020-06-16] MEDS ORDERED: Thrombin 5000 UNITS/5 ML VIAL ONE (12:08)
[2020-06-16] MEDS ORDERED: Phenylephrine 10 MG/ML VIAL ONE (12:11)
[2020-06-16] MEDS ORDERED: Levofloxacin 500 mg/D5W 100 ml Premix Bag ONE (12:13)
[2020-06-16] MEDS ORDERED: Clindamycin/D5W 900 mg/50 ml Premix Bag ONE (12:13)
[2020-06-16 12:17] LABS: INR-International Normal Ratio 0.9; PTT 28.6 sec (22.9-36.1); Prothrombin Time 12.8 sec (12.0-14.7)
[2020-06-16] MEDS ORDERED: GENVOYA PO SCH (12:30)
[2020-06-16] MEDS ORDERED: Fentanyl 100 MCG/2 ML VIAL ONE (12:42)
--- NOTE | 2020-06-16 13:33 | PRG ---
DATE OF SERVICE: 06/16/2020 SUBJECTIVE: The patient was seen and examined. I agree with Christine Rubio's evaluation on 06/16/2020. The patient is a 79-year-old woman who was admitted on the after sustaining new neurologic symptoms and pain exacerbation after an epidural steroid injection. She was found by MRI to have an epidural hematoma, which was managed nonsurgically initially with excellent improvement in her symptoms. However, in the last 24 hours, she has significant exacerbation, particularly with respect to pain with any movement. She also has pain into her legs. There does not seem to be a definitive new neurologic deficit, although she does have still a mild amount of leg heaviness. Her MRI scan is overall unchanged with again the epidural hematoma from T11 through L1. IMPRESSION AND PLAN: Given this recent deterioration, I think it would be a better balance of risk and benefit to evacuate the epidural hematoma surgically. I think this would be a high likelihood of her regaining mobility in a reasonable time frame and preventing neurologic deficit. I did discuss the indication, risks, benefits, and alternatives of the procedure with the patient, her , as well as her daughter by telephone and they expressed understanding and wished to proceed. Job ID: [id number]
--- NOTE | 2020-06-16 13:54 | MRI ---
MRI LUMBAR SPINE WITH AND WITHOUT CONTRAST: 06/16/20 INDICATIONS: Low back pain. Re-evaluate epidural hematoma. COMPARISON: Comparison made to MRI lumbar spine 06/13/20. FINDINGS: The mass lesion in the posterior spinal canal is seen posterior to the T12 vertebra is again noted. T his mass extends from the T11-T12 disc space to the T12-L1 disc space with craniocaudal dimension gurinder suring approximately 3.4 cm, not significantly changed from the prior study. The AP dimension; however, has decreased in size now measuring approximately 5 mm. The previous AP di mension recorded to up 10 mm. The signal characteristics have also changed. This mass now exhibits low central signal on T2 imagin g with high peripheral signal. It is relatively isointense on T1 imaging. Remainder of the lumbar spine is unchanged from 06/13/20. IMPRESSION: The findings are consistent with epidural hematoma posterior to the T12 vertebra. Size of this hemato ma has decreased since prior exam with dimensions given above. It continues to produce mild mass effe ct on the posterior cord although the cord compression has diminished since the prior study as noted above. POS: [facility]
[2020-06-16] MEDS ORDERED: Promethazine HCl 25 MG/ML VIAL SLOW IVP PRN (14:28)
[2020-06-16] MEDS ORDERED: Ondansetron HCl/PF 4 MG/2 ML Vial IVP PRN (14:28)
[2020-06-16] MEDS ORDERED: Promethazine HCl 25 MG/ML VIAL IM PRN (14:28)
--- NOTE | 2020-06-16 14:32 | OP ---
DATE OF PROCEDURE: 06/16/2020 NEEDLE GRADER: Christine Rubio PA-C PROCEDURE PERFORMED: T12 through L1 laminectomy, evacuation of hematoma. DESCRIPTION OF PROCEDURE: The patient was brought to the operating room and intubated. She was rolled in a prone position on gel-filled chest rolls. An incision was made exposing T11 through L1 and the level was confirmed by x-ray. As expected based on preoperative MRI scan, the T12 vertebrae spinous process. We performed complete L1, complete T12, and inferior T11 laminectomy and at the upper part of T12, identified epidural hematoma as expected. This was predominantly central and left-sided. Hematoma was aspirated without difficulty and a complete decompression of the dorsal spinal cord was achieved. The wound was then extensively irrigated and MAC hemostasis was secured. Vancomycin powder was applied and the wound was then closed in anatomic layers. Job ID: [id number]
[2020-06-16] MEDS ORDERED: Magnevist 469MG/ML 20 ML VIAL ONE (15:15)
[2020-06-16] MEDS ORDERED: Scopolamine 1.5 mg/72 hour Patch TOP SCH (22:00)
--- NOTE | 2020-06-16 22:30 | PDOC.HOSPP ---
- Subjective Encounter Date: 06/16/20 Encounter Time: 08:00 Subjective: Patient was identified in bed. She was given severe distress on account of worsening back pain. She has been on PATIENT'S LIBRARIAN pump overnight without any significant improvement - Objective Vital Signs & Weight: Vital Signs (12 hours) Temp Pulse Pulse Resp BP BP Pulse Ox 06/16/20 21:45 63 06/16/20 20:47 98.1 F 63 18 148/75 H 96 06/16/20 20:15 97 06/16/20 16:30 75 151/78 H 06/16/20 15:40 97.6 F 63 16 170/71 H 94 L 06/16/20 11:54 98.0 F 64 16 189/78 H 99 06/16/20 11:11 66 216/90 H Weight Weight 172 lb 8 oz I&O: 06/15/20 06/16/20 06/17/20 06:59 06:59 06:59 Intake Total 900 300 Output Total 400 400 Balance -400 900 -100 Result Diagrams: 06/16/20 04:24 06/16/20 08:49 Hospitalist ROS - Medication Medications: Active Medications Generic Name Dose Route Start Last Admin Trade Name Freq PRN Reason Stop Dose Admin Acetaminophen 650 mg 06/13/20 23:09 06/16/20 08:53 Acetaminophen 325 Mg Tab PO 650 mg Q4H PRN Administration Headache/Fever/Mild Pain (1-3) Dexamethasone 10 mg 06/16/20 10:00 06/16/20 11:54 Dexamethasone 10 Mg/Ml Vial SLOW IVP Not Given 1000 EUGENIE Furosemide 10 mg 06/15/20 09:00 06/16/20 11:50 Furosemide 20 Mg Tab PO 10 mg QAM EUGENIE Administration Hydralazine HCl 10 mg 06/13/20 23:03 06/16/20 16:11 Hydralazine 20 Mg/Ml Vial SLOW IVP 10 mg Q15M PRN Administration SBP >160 mmHg Hydralazine HCl 25 mg 06/14/20 15:00 06/16/20 21:45 Hydralazine 25 Mg Tab PO Not Given TID EUGENIE Fentanyl Citrate 2,000 mcg/ 100 mls @ 0 mls/hr 06/15/20 20:52 06/15/20 23:49 Sodium Chloride IV 100 mls INF PRN Administration Pain As Directed Ondansetron HCl 4 mg 06/13/20:09 06/16/20 08:57 Ondansetron Odt 4 Mg Tab PO 4 mg Q6H PRN Administration Nausea/Vomiting Ondansetron HCl 4 mg 06/13/20 23:09 06/16/20 16:11 Ondansetron Pf 4 Mg/2 Ml Vial IVP 4 mg Q6H PRN Administration Nausea/Vomiting Polyethylene Glycol 17 gm 06/14/20 14:21 06/16/20 08:53 Polyethylene Glycol 3350 17 Gm Packet PO 17 gm DAILYPRN PRN Administration Constipation Promethazine HCl 12.5 mg 06/15/20 20:52 06/16/20 21:19 Promethazine Hcl 25 Mg/Ml Vial IM 12.5 mg Q4H PRN Administration Nausea/Vomiting - Exam General Appearance: awake alert General - other findings: No acute distress does complain of back pain Heart: RRR, no murmur, no gallops Respiratory: no wheezes, no rales, no ronchi Gastrointestinal: soft, non-tender, non-distended, normal bowel sounds Extremities - other findings: Unable to move lower extremities due to back pain Psychiatric - other findings: In severe distress. Hosp A/P - Plan This is a 79-year-old female patient with a history of chronic back pain admitted on account of epidural hematoma following spinal epidural injection for chronic back pain. Back pain has been progressively worse this morning requiring reevaluation MRI and subsequent taken down to the OR for hematoma evacuation. She feels much better postop Spinal epidural hematoma Exquisite lower back pain progressively worsening. Repeat MRI ordered Neurosurgery informed Decision was made to take her to the OR for evacuation Hypertension Blood pressure slightly increased Restart home blood pressure medications Monitor BP History of TIA Not on anticoagulation No deficits at the moment Continue monitoring. Chronic back pain Pain management as above VT prophylaxisSCD CODE STATUSfull code Addendum: Postop, patient feels much better Pain significantly reduced however has postop nausea We will continue conservative management.
[2020-06-17 05:38] LABS: #Basophils 0.1 thou/uL (0.0-0.2); #Lymphocytes 2.3 thou/uL (1.20-3.40); #Monocytes 0.9 thou/uL (0.11-0.59); #Neutrophils 8.4 thou/uL (1.40-6.50); %Basophils 0.7 % (0.0-1.0); %Eosinophils 0.3 % (0.0-10.0); %Lymphocytes 19.3 % (21.0-51.0); %Monocytes 7.7 % (0.0-10.0); %Neutrophils 72.1 % (42.0-75.0); Hemoglobin 12.5 g/dL (12.0-16.0); Mean Corpuscular HGB CONC 33.2 g/dL (32.0-36.0); Mean Corpuscular Hemoglobin 31.6 pg (27.0-31.0); Mean Corpuscular Volume 95.3 fL (78.0-98.0); Mean Platelet Volume 10.3 fL (7.4-10.4); Platelet Count 185 thou/uL (130-400); RBC Distribution Width 13.7 % (11.5-14.5); Red Blood Cell (RBC) Count 3.96 mill/uL (4.20-5.40); White Blood Cell (WBC) Count 11.7 thou/uL (4.8-10.8)
[2020-06-17 05:55] LABS: Anion Gap 14 mmol/L (10-20); BUN (Urea Nitrogen) 28 mg/dL (9.8-20.1); Calc. Creatinine Clearance 65 mL/min (70-130); Calcium 9.2 mg/dL (7.8-10.44); Carbon Dioxide 23 mmol/L (23-31); Chloride 103 mmol/L (98-107); Estimated GFR-MDRD 61; Glucose 84 mg/dL (83-110); Sodium 136 mmol/L (136-145)
[2020-06-17] MEDS: Furosemide 20 MG TAB PO SCH (08:33)
[2020-06-17] MEDS: hydrALAZINE 25 MG TAB PO SCH ×3 (08:34→20:49)
[2020-06-17] MEDS: Dexamethasone 10 MG/ML VIAL SLOW IVP SCH (09:06)
[2020-06-17] MEDS: fentaNYL Citrate/PF 2,000 MCG in Sodium Chloride 0.9% 60 ML IV PRN (09:06)
[2020-06-17] MEDS ORDERED: Milk Of Magnesia 30 ML UDCUP PO PRN (09:37)
[2020-06-17] MEDS ORDERED: Calcium Carbonate 500 MG ChewTAB PO PRN (09:38)
--- NOTE | 2020-06-17 09:47 | PRG ---
DATE OF SERVICE: 06/17/2020 The patient is now postoperative day #1, status post T11-L1 laminectomy with evacuation of epidural hematoma. Following the surgery, she was transitioned to the Med/Surg floor, where her pain is significantly improved. She is tolerating a regular diet as well. She did have some issues with some urinary retention, overnight requiring I and O cath x1. She is voiding easily at the bedside commode this morning. Her MONICA drain had 110 mL out overnight. On exam this morning, she is awake, alert, sitting up on the side of bed and quite comfortable. She has free active range of motion of all extremities. No focal motor weakness. She has dark red blood in the MONICA drain. We will leave MONICA drain in place and continue her IV clindamycin as long as the MONICA drain remains. We will have her begin working with PT and OT and get her out of bed with assistance. She will likely need inpatient rehab and a screen has been ordered. We will also begin working on weaning her from the [employer] possibly this afternoon if her pain is well controlled following her therapy session. Job ID: [id number]
[2020-06-17] MEDS: Polyethylene Glycol 3350 17 GM Packet PO PRN (09:51)
--- NOTE | 2020-06-17 14:03 | PDOC.HOSPP ---
- Subjective Encounter Date: 06/17/20 Encounter Time: 11:15 Subjective: feels a whole lot better today says she mobilized to nurses station and back this morning daughter at bedside is moving all extremities - Objective Vital Signs & Weight: Vital Signs (12 hours) Temp Pulse Resp BP BP Pulse Ox 06/17/20 11:47 97.7 F 66 18 118/66 92 L 06/17/20 08:34 66 126/74 06/17/20 08:00 96 06/17/20 07:00 97.8 F 66 18 126/74 96 06/17/20 04:15 97.7 F 66 18 130/67 96 Weight Weight 172 lb 8 oz I&O: 06/16/20 06/17/20 06/18/20 06:59 06:59 05:59 Intake Total 900 760 360 Output Total 1190 650 Balance 900 430 290 Result Diagrams: 06/17/20 05:18 06/17/20 05:18 Hospitalist ROS - Medication Medications: Active Medications Generic Name Dose Route Start Last Admin Trade Name Freq PRN Reason Stop Dose Admin Acetaminophen 650 mg 06/13/20 23:09 06/16/20 08:53 Acetaminophen 325 Mg Tab PO 650 mg Q4H PRN Administration Headache/Fever/Mild Pain (1-3) Calcium Carbonate 1,000 mg 06/17/20 09:38 06/17/20 09:51 Calcium Carbonate 500 Mg Chewtab PO 1,000 mg DAILYPRN PRN Administration Heartburn or Indigestion Furosemide 10 mg 06/15/20 09:00 06/17/20 08:33 Furosemide 20 Mg Tab PO 10 mg QAM EUGENIE Administration Hydralazine HCl 10 mg 06/13/20 23:03 06/16/20 16:11 Hydralazine 20 Mg/Ml Vial SLOW IVP 10 mg Q15M PRN Administration SBP >160 mmHg Hydralazine HCl 25 mg 06/14/20 15:00 06/17/20 08:34 Hydralazine 25 Mg Tab PO 25 mg TID EUGENIE Administration Fentanyl Citrate 2,000 mcg/ 100 mls @ 0 mls/hr 06/15/20 20:52 06/17/20 09:06 Sodium Chloride IV 100 mls INF PRN Administration Pain As Directed Magnesium Hydroxide 30 ml 06/17/20 09:37 06/17/20 09:51 Milk Of Magnesia 30 Ml Udcup PO 30 ml DAILYPRN PRN Administration Constipation Ondansetron HCl 4 mg 06/13/20 23:09 06/16/20 08:57 Ondansetron Odt 4 Mg Tab PO 4 mg Q6H PRN Administration Nausea/Vomiting Ondansetron HCl 4 mg 06/13/20 23:09 06/16/20 16:11 Ondansetron Pf 4 Mg/2 Ml Vial IVP 4 mg Q6H PRN Administration Nausea/Vomiting Polyethylene Glycol 17 gm 06/14/20 14:21 06/17/20 09:51 Polyethylene Glycol 3350 17 Gm Packet PO 17 gm DAILYPRN PRN Administration Constipation Promethazine HCl 12.5 mg 06/15/20 20:52 06/16/20 21:19 Promethazine Hcl 25 Mg/Ml Vial IM 12.5 mg Q4H PRN Administration Nausea/Vomiting Scopolamine 1.5 mg 06/16/20 22:00 06/17/20 07:06 Scopolamine 1.5 Mg/72 Hour Patch TOP Not Given Q3D EUGENIE - Exam General Appearance: awake alert Eye: PERRL, anicteric sclera ENT: no oropharyngeal lesions, moist mucosa Neck: supple, no JVD Heart: RRR, no murmur Respiratory: no wheezes, no rales Gastrointestinal: soft, non-tender, non-distended, normal bowel sounds Extremities: no cyanosis, no edema Neurological: cranial nerve grossly intact, no focal deficits Psychiatric: normal affect, A&O x 3 Hosp A/P (1) Epidural hematoma Code(s): S06.4X9A - EPIDURAL HEMORRHAGE W LOC OF UNSP DURATION, INIT Status: Acute (2) S/P laminectomy Code(s): Z98.890 - OTHER SPECIFIED POSTPROCEDURAL STATES Status: Acute (3) Dyslipidemia Code(s): E78.5 - HYPERLIPIDEMIA, UNSPECIFIED Status: Chronic (4) Fibromyalgia Status: Chronic (5) HTN (hypertension) Code(s): I10 - ESSENTIAL (PRIMARY) HYPERTENSION Status: Chronic Qualifiers: Hypertension type: essential hypertension - Plan is improving well after laminectomy and started to mobilize on fentanyl pension administrator, hydralazine, lasix low dose hemo/neurostable likely rehab for dc plan continue PT/OT d/w patient and duaghter at bedside
[2020-06-17] MEDS ORDERED: HYDROcodone/Acetaminophen 10/325 mg Tablet PO PRN (18:56)
[2020-06-17] MEDS ORDERED: Morphine 2 MG/ML VIAL SLOW IVP PRN (18:57)
[2020-06-17] MEDS ORDERED: tiZANidine HCl 4 MG TAB PO PRN (18:57)
--- NOTE | 2020-06-17 20:28 | PRG ---
DATE OF SERVICE: 06/17/2020 SUBJECTIVE: Ms. Jha is up in a chair and quite comfortable. Her pain control has been quite adequate and dramatically improved from what it was prior to evacuation of the hematoma. Her leg strength seems appropriate and she has been ambulatory. IMPRESSION AND PLAN: The patient made an excellent progress. We will remove the drain tomorrow and she should be ready to go home in the next few days. Job ID: [id number]
[2020-06-17] MEDS: Acetaminophen 325 MG TAB PO PRN (22:51)
[2020-06-17] MEDS: traMADol HCl 50 MG TAB PO PRN (22:51)
[2020-06-17] MEDS: Clindamycin/D5W 900 MG in Premix Bag 1 BAG IVPB SCH (22:51)
[2020-06-18] MEDS: Acetaminophen 325 MG TAB PO PRN (05:09)
[2020-06-18] MEDS: Clindamycin/D5W 900 MG in Premix Bag 1 BAG IVPB SCH ×2 (05:11→14:51)
[2020-06-18 05:57] LABS: #Eosinphils 0.1 thou/uL (0.0-0.7); #Monocytes 0.8 thou/uL (0.11-0.59); #Neutrophils 7.5 thou/uL (1.40-6.50); %Basophils 0.3 % (0.0-1.0); %Eosinophils 1.3 % (0.0-10.0); %Lymphocytes 19.4 % (21.0-51.0); %Monocytes 7.9 % (0.0-10.0); %Neutrophils 71.1 % (42.0-75.0); Hemoglobin 11.3 g/dL (12.0-16.0); Mean Corpuscular HGB CONC 33.5 g/dL (32.0-36.0); Mean Corpuscular Hemoglobin 32.4 pg (27.0-31.0); Mean Corpuscular Volume 96.6 fL (78.0-98.0); Mean Platelet Volume 10.4 fL (7.4-10.4); Platelet Count 158 thou/uL (130-400); RBC Distribution Width 13.5 % (11.5-14.5); Red Blood Cell (RBC) Count 3.48 mill/uL (4.20-5.40); White Blood Cell (WBC) Count 10.5 thou/uL (4.8-10.8)
[2020-06-18 08:11] VITALS: TEMP 98
[2020-06-18] MEDS: Furosemide 20 MG TAB PO SCH (09:06)
[2020-06-18] MEDS: hydrALAZINE 25 MG TAB PO SCH ×2 (09:06→14:51)
[2020-06-18] MEDS: traMADol HCl 50 MG TAB PO PRN (09:09)
--- NOTE | 2020-06-18 12:12 | PDOC.HOSPP ---
- Subjective Encounter Date: 06/18/20 Encounter Time: 09:00 Subjective: feels better, is sitting in chair and daughter at bedside has ambulated well with PT and rolling walker has had bm yesterday no weakness in her legs or hand now - Objective Vital Signs & Weight: Vital Signs (12 hours) Temp Pulse Resp BP BP Pulse Ox 06/18/20 09:09 96 06/18/20 09:06 63 129/65 06/18/20 07:24 98 F 63 18 129/65 96 06/18/20 05:12 97.9 F 63 16 141/76 H 94 L Weight Weight 172 lb 8 oz I&O: 06/17/20 06/18/20 06/19/20 07:59 06:59 06:59 Intake Total Output Total Balance Result Diagrams: 06/18/20 05:22 06/17/20 05:18 Hospitalist ROS - Medication Medications: Active Medications Generic Name Dose Route Start Last Admin Trade Name Freq PRN Reason Stop Dose Admin Acetaminophen 650 mg 06/13/20 23:09 06/18/20 05:09 Acetaminophen 325 Mg Tab PO 650 mg Q4H PRN Administration Headache/Fever/Mild Pain (1-3) Calcium Carbonate 1,000 mg 06/17/20 09:38 06/17/20 09:51 Calcium Carbonate 500 Mg Chewtab PO 1,000 mg DAILYPRN PRN Administration Heartburn or Indigestion Furosemide 10 mg 06/15/20 09:00 06/18/20 09:06 Furosemide 20 Mg Tab PO 10 mg QAM EUGENIE Administration Hydralazine HCl 10 mg 06/13/20 23:03 06/16/20 16:11 Hydralazine 20 Mg/Ml Vial SLOW IVP 10 mg Q15M PRN Administration SBP >160 mmHg Hydralazine HCl 25 mg 06/14/20 15:00 06/18/20 09:06 Hydralazine 25 Mg Tab PO 25 mg TID EUGENIE Administration Clindamycin Phosphate/Dextrose 50 mls @ 100 mls/hr 06/17/20 22:00 06/18/20 05:11 900 mg/ Device IVPB 50 mls Q8HR EUGENIE Administration Magnesium Hydroxide 30 ml 06/17/20 09:37 06/17/20 09:51 Milk Of Magnesia 30 Ml Udcup PO 30 ml DAILYPRN PRN Administration Constipation Ondansetron HCl 4 mg 06/13/20 23:09 06/16/20 08:57 Ondansetron Odt 4 Mg Tab PO 4 mg Q6H PRN Administration Nausea/Vomiting Ondansetron HCl 4 mg 06/13/20 23:09 06/16/20 16:11 Ondansetron Pf 4 Mg/2 Ml Vial IVP 4 mg Q6H PRN Administration Nausea/Vomiting Polyethylene Glycol 17 gm 06/14/20 14:21 06/17/20 09:51 Polyethylene Glycol 3350 17 Gm Packet PO 17 gm DAILYPRN PRN Administration Constipation Promethazine HCl 12.5 mg 06/15/20 20:52 06/16/20 21:19 Promethazine Hcl 25 Mg/Ml Vial IM 12.5 mg Q4H PRN Administration Nausea/Vomiting Scopolamine 1.5 mg 06/16/20 22:00 06/17/20 07:06 Scopolamine 1.5 Mg/72 Hour Patch TOP Not Given Q3D EUGENIE Tizanidine HCl 4 mg 06/17/20 18:57 06/17/20 20:49 Tizanidine Hcl 4 Mg Tab PO 4 mg Q6H PRN Administration Muscle Spasm Tramadol HCl 50 mg 06/17/20 18:57 06/18/20 09:09 Tramadol Hcl 50 Mg Tab PO 50 mg Q6H PRN Administration Pain - Exam General Appearance: awake alert Eye: PERRL, anicteric sclera ENT: no oropharyngeal lesions, moist mucosa Neck: supple, no JVD Heart: RRR, no murmur Respiratory: no wheezes, no rales Gastrointestinal: soft, non-tender, non-distended, normal bowel sounds Extremities: no cyanosis, no edema Neurological: cranial nerve grossly intact, no focal deficits Psychiatric: normal affect, A&O x 3 Hosp A/P (1) Epidural hematoma Code(s): S06.4X9A - EPIDURAL HEMORRHAGE W LOC OF UNSP DURATION, INIT Status: Acute (2) S/P laminectomy Code(s): Z98.890 - OTHER SPECIFIED POSTPROCEDURAL STATES Status: Acute (3) Dyslipidemia Code(s): E78.5 - HYPERLIPIDEMIA, UNSPECIFIED Status: Chronic (4) Fibromyalgia Status: Chronic (5) HTN (hypertension) Code(s): I10 - ESSENTIAL (PRIMARY) HYPERTENSION Status: Chronic Qualifiers: Hypertension type: essential hypertension - Plan is improving well after laminectomy and has started to mobilize well now around 180ft. on fentanyl car shunter, hydralazine, lasix low dose hemo/neurostable likely HH with PT and nursing for dc plan in am, still has drain in her surgical laminectomy site continue PT/OT d/w patient, and gu[place]ito at bedside
[2020-06-18 14:51] VITALS: BP 129/65
--- NOTE | 2020-06-19 02:21 | DIS ---
DATE OF ADMISSION: 06/13/2020 DATE OF DISCHARGE: 06/18/2020 HISTORY OF PRESENT ILLNESS: The patient is a 79-year-old female who presented to the emergency department on 06/13/2020, after severe pain following an epidural steroid injection. She was evaluated with MRI and found to have epidural hematoma formation. She initially seemed to improve, but then had progressive pain in the back and legs. Repeat MRI showed persistent hematoma and therefore patient was taken for a T11-L1 laminectomy with epidural hematoma evacuation. Following the surgery, the patient had significant improvement in her back and leg pain. She was ambulating easily throughout the department, had very minimal pain, tolerating it well with p.o. medications. She was also tolerating a regular diet and voiding appropriately. MONICA drain output trended down and had 20 mL over the postoperative night #2. It was removed on postoperative day #2. We will plan to dismiss the patient to home. I have discussed home care and precautions and will follow up with the patient in 2 weeks for recheck. Home Health arranged on discharge. Job ID: [id number]
--- NOTE | 2020-06-20 03:15 | PQF ---
CLINICAL DOCUMENTATION CLARIFICATION FORM: Dear : Christine Rubio Date / Time: 06/20/20313 Please exercise your independent, professional judgment in responding to the clarification form. Clinical indicators are provided on the bottom of this form for your review Please check appropriate box(es): [ ] Spinal Epidural Hematoma is a postoperative complication of Spinal infection [x ] Spinal Epidural Hematoma is not a postoperative complication of Spinal infection [ ] Other diagnosis [ ] Unable to determine Physician Signature: Date/Time: For continuity of documentation, please document condition throughout progress notes and discharge summary. Thank You. To be completed by CDI/Coding staff for physician review: Present Clinical Indicators - Signs / Symptoms / Labs Results and Location in Medical Record [X] BP 128/72, Pulse 56, Resp 16, Temp 98 Vital signs 06/13 [X] complains of lower back pain without radiation since undergoing spinal infection this AM H&P p1 06/13 Dr Lawson [X] MRI: T12-L1 Epidural hematoma with compression on cord H&P p1 06/13 Dr Lawson [X] Epidural hematoma underwent lumbar steroid 06/13 H&P p4 06/13 Dr Lawson Present Risk Factors Results and Location in Medical Record [X] 79 year-old Female H&P p1 06/13 Dr Lawson [X] DDD H&P p1 06/13 Dr Lawson [X] HTN H&P p1 06/13 Dr Lawson [X] Fibromyalgia H&P p1 06/13 Dr Lawson [X] s/p Lumbar spinal steroid infection Present Treatments Results and Location in Medical Record [X] Neuro check H&P p4 06/13 Dr Lawson [X] Monitor for pain H&P p4 06/13 Dr Lawson [X] Evacuation of hematoma Operative report Dr Cifuentes 06/16 [X] IV decadron 10 mg OCT 25 [X] IV Morpine 4 mg OCT 25 [X] Neurosurgery Consult Consult 06/13 CDS/Job Boss Signature: Natalie Mariscalmagdi Phone #: ext [phone] Date/Time: This is a permanent part of the Medical Record [facility]
--- NOTE | 2020-06-20 18:32 | PQF ---
CLINICAL DOCUMENTATION CLARIFICATION FORM: Dear : Christine Rubio Date / Time: 06/20/20 183 Please exercise your independent, professional judgment in responding to the clarification form. Clinical indicators are provided on the bottom of this form for your review In your clinical opinion based on clinical findings below, can you please specify Spinal epidural hematoma if: Please check appropriate box(es): [ X] Traumatic Spinal epidural hematoma [ ] Non-Traumatic Spinal epidural hematoma [ ] Other diagnosis [ ] Unable to determine In addition, please specify: Present on Admission (POA): [ X ] Yes [ ] No [ ] Unable to determine Physician Signature: Date/Time: For continuity of documentation, please document condition throughout progress notes and discharge summary. Thank You. To be completed by CDI/Coding staff for physician review: Present Clinical Indicators - Signs / Symptoms / Labs Results and Location in Medical Record [X] BP 128/72, Pulse 56, Resp 16, Temp 98 Vital signs 06/13 [X] complains of lower back pain without radiation since undergoing spinal infection this AM H&P p1 06/13 Dr Lawson [X] MRI: T12-L1 Epidural hematoma with compression on cord H&P p1 06/13 Dr Lawson [X] Epidural hematoma underwent lumbar steroid 06/13 H&P p4 06/13 Dr Lawson Present Risk Factors Results and Location in Medical Record [X] 79 year-old Female H&P p1 06/13 Dr Lawson [X] DDD H&P p1 06/13 Dr Lawson [X] HTN H&P p1 06/13 Dr Lawson [X] Fibromyalgia H&P p1 06/13 Dr Lawson [X] s/p Lumbar spinal steroid infection Present Treatments Results and Location in Medical Record [X] Neuro check H&P p4 06/13 Dr Lawson [X] Monitor for pain H&P p4 06/13 Dr Lawson [X] Evacuation of hematoma Operative report Dr Cifuentes 06/16 [X] IV decadron 10 mg OCT 25 [X] IV Morphine 4 mg OCT 25 [X] Neurosurgery Consult Consult 06/13 CDS/Acetone Button Paster Signature: Natalie Debora Reymundoleonciomagdi Phone #: ext [phone] Date/Time: 06/20/2020 183 This is a permanent part of the Medical Record [facility]
== END 2020-06-18 16:13 | disposition home health service (06) | DRG 28 ==
LOC: ERS 16:08 → 2SE 22:09 → SURG A 06-16 15:57
PROVIDERS: ADMIT Student in an Organized Health Care Education/Training Program; ATTEND Internal Medicine
PROC: 00CU0ZZ Extirpation of Matter from Spinal Canal, Open Approach (ICD-10-PCS; principal; 2020-06-16)
PROC: 00NX0ZZ Release Thoracic Spinal Cord, Open Approach (ICD-10-PCS; 2020-06-16)
PROC: 00NY0ZZ Release Lumbar Spinal Cord, Open Approach (ICD-10-PCS; 2020-06-16)
DX: S24.104A Unspecified injury at T11-T12 level of thoracic spinal cord, initial encounter (principal); S34.101A Unspecified injury to L1 level of lumbar spinal cord, initial encounter; Z20.828 Contact with and (suspected) exposure to other viral communicable diseases; M79.7 Fibromyalgia; I10 Essential (primary) hypertension; M19.90 Unspecified osteoarthritis, unspecified site; G89.29 Other chronic pain; M51.15 Intervertebral disc disorders with radiculopathy, thoracolumbar region; X58.XXXA Exposure to other specified factors, initial encounter; R11.0 Nausea; R33.9 Retention of urine, unspecified; Z90.49 Acquired absence of other specified parts of digestive tract; Z88.1 Allergy status to other antibiotic agents; Z88.2 Allergy status to sulfonamides; Z88.8 Allergy status to other drugs, medicaments and biological substances; Z79.899 Other long term (current) drug therapy; Z79.82 Long term (current) use of aspirin
CPT/HCPCS: 36415; 51798; 62323; 72158; 76000; 80048; 80053; 82550; 85025; 85610; 85730; 87635; 96374; 96375; 96376; A9579; J0360; J1040; J1100; J1170; J1956; J2060; J2270; J2370; J2405; J2550; J2704; J3010; J3370; J3490; Q0162; Q9967; S0020; U0003

== ENCOUNTER 2020-09-08 21:46 | Emergency (ER) | payer MEDICARE ==
[2020-09-08] MEDS ORDERED: Metoclopramide HCl 10 MG/2 ML VIAL ONE (22:15)
[2020-09-08] MEDS ORDERED: diphenhydrAMINE 50 MG/ML VIAL ONE (22:15)
[2020-09-08] MEDS ORDERED: Ketorolac Tromethamine 30 MG/ML VIAL ONE (22:15)
[2020-09-08 22:39] LABS: #Basophils 0.1 thou/uL (0.0-0.2); #Eosinphils 0.2 thou/uL (0.0-0.7); #Lymphocytes 2.3 thou/uL (1.20-3.40); #Monocytes 0.5 thou/uL (0.11-0.59); #Neutrophils 4.2 thou/uL (1.40-6.50); %Basophils 1.3 % (0.0-1.0); %Eosinophils 3.1 % (0.0-10.0); %Lymphocytes 31.3 % (21.0-51.0); %Monocytes 6.4 % (0.0-10.0); %Neutrophils 57.9 % (42.0-75.0); Mean Corpuscular Hemoglobin 30.3 pg (27.0-31.0); Mean Corpuscular Volume 94.7 fL (78.0-98.0); Mean Platelet Volume 10.4 fL (7.4-10.4); Platelet Count 177 thou/uL (130-400); RBC Distribution Width 12.9 % (11.5-14.5); Red Blood Cell (RBC) Count 3.97 mill/uL (4.20-5.40); White Blood Cell (WBC) Count 7.3 thou/uL (4.8-10.8)
[2020-09-08 22:48] LABS: ALT (SGPT) 13 U/L (8-55); AST (SGOT) 29 U/L (5-34); Albumin 3.9 g/dL (3.4-4.8); Alkaline Phosphatase 121 U/L (40-110); Anion Gap 15 mmol/L (10-20); BUN (Urea Nitrogen) 22 mg/dL (9.8-20.1); Bilirubin, Total 0.3 mg/dL (0.2-1.2); Calc. Creatinine Clearance 0 mL/min (70-130); Calcium 9.8 mg/dL (7.8-10.44); Carbon Dioxide 23 mmol/L (23-31); Chloride 104 mmol/L (98-107); Globulin 3.6 g/dL (2.4-3.5); Glucose 95 mg/dL (83-110); Protein, Total 7.5 g/dL (5.8-8.1); Sodium 137 mmol/L (136-145)
--- NOTE | 2020-09-08 22:48 | CT ---
CT head noncontrast HISTORY: Headache. Hypertension. COMPARISON: 11/16/2017. FINDINGS: There is no evidence of acute intracranial hemorrhage or infarct. Mild diffuse cortical atr ophy and chronic ischemic small vessel disease are stable. There is no mass effect or shift of midline structures. Prominent arachnoid granulations at the occipital calvarium are stable. IMPRESSION : No acute abnormalities are demonstrated.
[2020-09-08 23:47] LABS: Bacteria/HPF None Seen HPF (None Seen); Bilirubin Negative (Negative); Blood, Urine Negative (Negative); Clarity Clear (Clear); Glucose, Urine (Dipstick) Normal (Negative); Ketone, Urine Negative (Negative); Leukocyte 250 Leu/uL (Negative); Nitrite Negative (Negative); Protein, Urine (Dipstick) Negative (Neg-Trace); RBC/HPF 0-3 HPF (0-3); Specific Gravity, Urine 1.009 (1.002-1.036); Squamous Epithelial None Seen HPF (0-3); Urobilinogen Normal mg/dL (Less than 2); WBC/HPF 0-3 HPF (0-3)
--- NOTE | 2020-09-23 18:37 | EKG ---
Test Reason : Blood Pressure : / mmHG Vent. Rate : 060 BPM Atrial Rate : 060 BPM P-R Int : 162 ms QRS Dur : 086 ms QT Int : 430 ms P-R-T Axes : 046 013 032 degrees QTc Int : 430 ms Normal sinus rhythm Normal ECG Confirmed by SHERRY MASCORRO ([id number]), editorial specialist FAVIAN CORDERO ([id number]) on 09/23/2020 6:36:52 PM Referred By: Confirmed By:SHERRY MASCORRO
== END 2020-09-08 23:57 | disposition home or self-care (01) ==
LOC: ERS 21:46
DX: I10 Essential (primary) hypertension (principal); R51.9 Headache, unspecified; M25.511 Pain in right shoulder; G89.29 Other chronic pain; E78.00 Pure hypercholesterolemia, unspecified; M19.90 Unspecified osteoarthritis, unspecified site
CPT/HCPCS: 70450; 80053; 81003; 81015; 84484; 85025; 93005; 96365; 96375; J1200; J1885; J2765

== ENCOUNTER 2020-10-26 09:32 | Outpatient (CLI) | payer MEDICARE | END 2020-10-26 09:33 | disposition home or self-care (01) | LOC: RAD 09:32 | PROVIDERS: ATTEND Internal Medicine Hematology & Oncology | DX: C90.00 Multiple myeloma not having achieved remission (principal); D47.2 Monoclonal gammopathy | CPT/HCPCS: 77075 ==

== ENCOUNTER 2021-04-19 07:31 | Outpatient (CLI) | payer MEDICARE | END 2021-04-19 07:32 | disposition home or self-care (01) | LOC: BICMRI 07:31 | PROVIDERS: ATTEND Family Medicine | DX: M54.2 Cervicalgia (principal); G89.28 Other chronic postprocedural pain; M47.812 Spondylosis without myelopathy or radiculopathy, cervical region; M48.02 Spinal stenosis, cervical region | CPT/HCPCS: 72141 ==

== ENCOUNTER 2021-05-15 10:44 | Outpatient (CLI) | payer MEDICARE ==
[2021-05-15 12:33] LABS: #Basophils 0.1 10x3/uL (0.0-0.2); #Eosinphils 0.1 10x3/uL (0.0-0.5); #Monocytes 0.5 10x3/uL (0.0-1.1); #Neutrophils 6.1 10x3/uL (1.5-8.4); %Basophils 0.8 % (0.0-2.0); %Lymphocytes 21.6 % (18.0-47.0); %Monocytes 5.9 % (0.0-10.0); %Neutrophils 70.2 % (40.0-75.0); Hemoglobin 12.4 g/dL (12.0-15.5); Mean Corpuscular Hemoglobin 30.3 pg (27.0-33.0); Mean Corpuscular Volume 94.6 fl (81.6-98.3); Mean Platelet Volume 12.5 fl (7.4-10.4); Platelet Count 200 10x3/uL (150-450); RBC Distribution Width 15.1 % (11.5-14.5); Red Blood Cell (RBC) Count 4.09 10x6/uL (3.90-5.03); White Blood Cell (WBC) Count 8.6 10x3/uL (3.5-10.5)
[2021-05-15 12:50] LABS: Anion Gap 14 mmol/L (10-20); BUN (Urea Nitrogen) 29 mg/dL (9.8-20.1); Calc. Creatinine Clearance 0 mL/min (70-130); Calcium 10.3 mg/dL (7.8-10.44); Carbon Dioxide 25 mmol/L (23-31); Chloride 103 mmol/L (98-107); Glucose 83 mg/dL (83-110); Potassium 4.7 mmol/L (3.5-5.1); Sodium 137 mmol/L (136-145)
[2021-05-15 18:10] LABS: SARS-CoV-2 PCR by NAA Not Detected (NotDetected)
== END 2021-05-15 10:45 | disposition home or self-care (01) ==
LOC: LABBT 10:44
PROVIDERS: ATTEND Surgery
DX: Z01.818 Encounter for other preprocedural examination (principal); K43.9 Ventral hernia without obstruction or gangrene; Z20.822 Contact with and (suspected) exposure to COVID-19
CPT/HCPCS: 71046; 80048; 85025; 93005; U0003; U0005; 93010

== ENCOUNTER 2021-05-18 07:44 | Day surgery (SDC) | payer MEDICARE ==
[2021-05-15 14:54] VITALS: BMI 32.1
[2021-05-18] MEDS ORDERED: ceFAZolin 2 GM/DEX 5% 100 ML BAG ONE (08:31)
[2021-05-18] MEDS ORDERED: hydrALAZINE 20 MG/ML VIAL ONE (08:32)
[2021-05-18] MEDS ORDERED: Bupivacaine 0.25% HCL 30 ML VIAL ONE (09:13)
[2021-05-18] MEDS ORDERED: EPINEPHrine 1 MG/ML AMP ONE (09:13)
[2021-05-18] MEDS ORDERED: Fentanyl 100 MCG/2 ML VIAL ONE ×2 (09:14→13:39)
[2021-05-18] MEDS ORDERED: Levofloxacin 500 mg/D5W 100 ml Premix Bag ONE (09:16)
[2021-05-18] MEDS ORDERED: Rocuronium Bromide 10 MG/ML (10ML VIAL) ONE (09:35)
[2021-05-18] MEDS ORDERED: PROPOFOL 200 MG/20 ML VIAL ONE (09:35)
[2021-05-18] MEDS ORDERED: PHENYLEPHRINE-NS 100 MCG/ML 10 ML SYRINGE ONE (09:35)
[2021-05-18] MEDS ORDERED: Glycopyrrolate 0.2 MG/ML 5 ML SYRINGE ONE (09:35)
[2021-05-18] MEDS ORDERED: ePHEDrine 50 MG/ML VIAL ONE (09:35)
[2021-05-18] MEDS ORDERED: Ondansetron PF 4 MG/2 ML Vial ONE (09:35)
[2021-05-18] MEDS ORDERED: Dexamethasone 20 MG/5 ML VIAL ONE (09:35)
[2021-05-18] MEDS ORDERED: Lidocaine 1% PF 5 ML VIAL ONE (09:35)
[2021-05-18] MEDS ORDERED: Promethazine HCl 25 MG/ML VIAL ONE (13:39)
[2021-05-18] MEDS ORDERED: Ondansetron ODT 4 MG TAB ONE (16:08)
[2021-05-18] MEDS ORDERED: HYDROcodone/Acetaminophen 5/325 mg Tablet ONE ×2 (16:20)
== END 2021-05-18 18:30 | disposition home or self-care (01) ==
LOC: SDC 07:44
PROVIDERS: ATTEND Surgery
PROC: 0WUF4JZ Supplement Abdominal Wall with Synthetic Substitute, Percutaneous Endoscopic Approach (ICD-10-PCS; principal; 2021-05-18)
DX: K43.2 Incisional hernia without obstruction or gangrene (principal); K42.9 Umbilical hernia without obstruction or gangrene; K66.0 Peritoneal adhesions (postprocedural) (postinfection); G47.33 Obstructive sleep apnea (adult) (pediatric); K21.9 Gastro-esophageal reflux disease without esophagitis; M79.7 Fibromyalgia; I12.9 Hypertensive chronic kidney disease with stage 1 through stage 4 chronic kidney disease, or unspecified chronic kidney disease; N18.2 Chronic kidney disease, stage 2 (mild); Z79.82 Long term (current) use of aspirin; Z79.899 Other long term (current) drug therapy; Z88.1 Allergy status to other antibiotic agents; Z88.2 Allergy status to sulfonamides; Z88.5 Allergy status to narcotic agent; Z88.8 Allergy status to other drugs, medicaments and biological substances
CPT/HCPCS: J0171; J0360; J1100; J1956; J2405; J2550; J2704; J3010; J3490; Q0162; S0020

== ENCOUNTER 2021-05-22 23:35 | Emergency (ER) | payer MEDICARE | END 2021-05-23 02:11 | disposition home or self-care (01) | LOC: ERS 23:35 | DX: K91.870 Postprocedural hematoma of a digestive system organ or structure following a digestive system procedure (principal); T78.49XA Other allergy, initial encounter; K59.00 Constipation, unspecified; L50.9 Urticaria, unspecified; M79.7 Fibromyalgia; I10 Essential (primary) hypertension; M19.90 Unspecified osteoarthritis, unspecified site; E78.00 Pure hypercholesterolemia, unspecified; Z79.899 Other long term (current) drug therapy | CPT/HCPCS: 74176 ==

== ENCOUNTER 2021-12-18 10:20 | Outpatient (CLI) | payer MEDICARE | END 2021-12-18 10:21 | disposition home or self-care (01) | LOC: BICCT 10:20 | PROVIDERS: ATTEND Registered Nurse | DX: R51.9 Headache, unspecified (principal) | CPT/HCPCS: 70450 ==

== ENCOUNTER 2022-01-21 14:37 | Outpatient (CLI) | payer MEDICARE ==
[2022-01-21 17:25] LABS: #Basophils 0.1 10x3/uL (0.0-0.2); #Eosinphils 0.1 10x3/uL (0.0-0.5); #Monocytes 0.5 10x3/uL (0.0-1.1); #Neutrophils 4.8 10x3/uL (1.5-8.4); %Basophils 1.1 % (0.0-2.0); %Eosinophils 1.5 % (0.0-6.0); %Lymphocytes 23.4 % (18.0-47.0); %Monocytes 6.9 % (0.0-10.0); %Neutrophils 66.7 % (40.0-75.0); Hemoglobin 11.7 g/dL (12.0-15.5); Mean Corpuscular HGB CONC 33.1 g/dL (32.0-36.0); Mean Corpuscular Hemoglobin 32.3 pg (27.0-33.0); Mean Corpuscular Volume 97.8 fl (81.6-98.3); Mean Platelet Volume 12.7 fl (7.4-10.4); Platelet Count 158 10x3/uL (150-450); RBC Distribution Width 13.3 % (11.5-14.5); Red Blood Cell (RBC) Count 3.62 10x6/uL (3.90-5.03); White Blood Cell (WBC) Count 7.2 10x3/uL (3.5-10.5)
[2022-01-21 17:33] LABS: INR-International Normal Ratio 0.9; Prothrombin Time 10.3 sec (9.5-12.1)
[2022-01-21 17:41] LABS: Anion Gap 16 mmol/L (10-20); BUN (Urea Nitrogen) 33 mg/dL (9.8-20.1); Calc. Creatinine Clearance 0 mL/min (70-130); Calcium 9.7 mg/dL (7.8-10.44); Carbon Dioxide 22 mmol/L (23-31); Chloride 106 mmol/L (98-107); Glucose 81 mg/dL (83-110); Potassium 5.2 mmol/L (3.5-5.1)
[2022-01-21 18:08] LABS: Sodium 139 mmol/L (136-145)
== END 2022-01-21 14:38 | disposition home or self-care (01) ==
LOC: LABBT 14:37
PROVIDERS: ATTEND Orthopaedic Surgery
DX: Z01.818 Encounter for other preprocedural examination (principal); G56.21 Lesion of ulnar nerve, right upper limb; Z20.822 Contact with and (suspected) exposure to COVID-19
CPT/HCPCS: 80048; 85025; 85610; 93005; U0003; U0005; 93010

== ENCOUNTER 2022-05-23 10:45 | Outpatient (CLI) | payer MEDICARE | END 2022-05-23 10:46 | disposition home or self-care (01) | LOC: BICMAMMO 10:45 | PROVIDERS: ATTEND Registered Nurse | DX: Z13.820 Encounter for screening for osteoporosis (principal); Z78.0 Asymptomatic menopausal state; M85.852 Other specified disorders of bone density and structure, left thigh | CPT/HCPCS: 77080 ==

== ENCOUNTER 2025-06-21 10:38 | Observation (INO) | payer OTHER ==
[2025-06-21 12:11] LABS: #Basophils 0.04 10x3/uL (0.0-0.2); #Eosinophils 0.12 10x3/uL (0.0-0.7); #Monocytes 0.37 10x3/uL (0.11-0.59); #Neutrophils 3.85 10x3/uL (1.40-6.50); %Basophils 0.7 % (0.0-1.0); %Eosinophils 2.1 % (0.0-10.0); %Lymphocytes 24.3 % (21.0-51.0); %Monocytes 6.4 % (0.0-10.0); %Neutrophils 66.2 % (42.0-75.0); Hematocrit 33.7 % (36.0-47.0); Hemoglobin 11.0 g/dL (12.0-16.0); Mean Corpuscular Hemoglobin 31.1 pg (27.0-31.0); Mean Corpuscular Volume 95.2 fL (78.0-98.0); Platelet Count 116 10x3/uL (130-400); Red Blood Cell (RBC) Count 3.54 mill/uL (4.20-5.40); White Blood Cell (WBC) Count 5.81 10x3/uL (4.8-10.8)
[2025-06-21 12:15] LABS: ALT (SGPT) 13 U/L (Less than 34); AST (SGOT) 22 U/L (11-34); Albumin 3.7 g/dL (3.1-4.5); Alkaline Phosphatase 81 U/L (40-110); Anion Gap 13 mmol/L (10-20); BUN (Urea Nitrogen) 24 mg/dL (9.8-20.1); Bilirubin, Total 0.5 mg/dL (0.3-1.2); Calc. Creatinine Clearance 0 mL/min (70-130); Calcium 10.0 mg/dL (7.8-10.44); Carbon Dioxide 26 mmol/L (23-31); Chloride 104 mmol/L (98-107); Globulin 3.5 g/dL (2.4-3.5); Glucose 85 mg/dL (83-110); Potassium 4.7 mmol/L (3.5-5.1); Sodium 138 mmol/L (136-145)
[2025-06-21] MEDS ORDERED: Aspirin Chewable 81 MG TAB ONE (12:15)
[2025-06-21 13:19] LABS: Anisocytosis SLIGHT = 6-15 cells HPF (0-5); Macrocytosis SLIGHT = 6-15 cells HPF (0-5); Ovalocytes SLIGHT = 2-5 cells HPF (0-1); Platelet Adequacy Comment Platelets Decreased
[2025-06-21 15:52] VITALS: BMI 34.8
[2025-06-21] MEDS ORDERED: FLU (Fluad Triv) 25-26 (65UP)PF 45 MCG/0.5 ML Syringe IM ONE (16:45)
[2025-06-21] MEDS ORDERED: Guaifenesin DM 100-10/5 ML UDCUP PO PRN (18:25)
[2025-06-21] MEDS: Ezetimibe 10 MG TAB PO SCH (20:20)
[2025-06-22] MEDS: Ondansetron PF 4 MG/2 ML Vial IVP PRN (00:03)
[2025-06-22] MEDS: hydrALAZINE 20 MG/ML VIAL SLOW IVP SCH (00:32)
[2025-06-22] MEDS: Acetaminophen 325 MG TAB PO PRN (01:10)
[2025-06-22 04:46] LABS: #Basophils 0.06 10x3/uL (0.0-0.2); #Eosinophils 0.16 10x3/uL (0.0-0.7); #Monocytes 0.43 10x3/uL (0.11-0.59); #Neutrophils 3.47 10x3/uL (1.40-6.50); %Basophils 1.0 % (0.0-1.0); %Eosinophils 2.7 % (0.0-10.0); %Lymphocytes 30.7 % (21.0-51.0); %Monocytes 7.2 % (0.0-10.0); %Neutrophils 58.1 % (42.0-75.0); Hematocrit 33.2 % (36.0-47.0); Hemoglobin 10.6 g/dL (12.0-16.0); Mean Corpuscular Hemoglobin 30.0 pg (27.0-31.0); Mean Corpuscular Volume 94.1 fL (78.0-98.0); Platelet Count 105 10x3/uL (130-400); Red Blood Cell (RBC) Count 3.53 mill/uL (4.20-5.40); White Blood Cell (WBC) Count 5.97 10x3/uL (4.8-10.8)
[2025-06-22 05:07] LABS: Anion Gap 16 mmol/L (10-20); BUN (Urea Nitrogen) 27 mg/dL (9.8-20.1); Calc. Creatinine Clearance 39 mL/min (70-130); Calcium 9.6 mg/dL (7.8-10.44); Carbon Dioxide 23 mmol/L (23-31); Chloride 106 mmol/L (98-107); Glucose 87 mg/dL (83-110); Potassium 5.0 mmol/L (3.5-5.1); Sodium 140 mmol/L (136-145)
[2025-06-22] MEDS: Enoxaparin 40 MG (0.4 mL) SYRINGE SC SCH (11:31)
[2025-06-22] MEDS: Aspirin Chewable 81 MG TAB PO SCH (11:32)
[2025-06-22] MEDS: DULoxetine 20 MG CAP PO SCH (11:32)
[2025-06-22 15:49] VITALS: BP 167/71; TEMP 98
== END 2025-06-22 17:40 | disposition home or self-care (01) ==
LOC: ERS 10:38 → OBS 13:10
PROVIDERS: ADMIT Student in an Organized Health Care Education/Training Program; ATTEND Student in an Organized Health Care Education/Training Program
DX: R06.00 Dyspnea, unspecified (principal); E78.5 Hyperlipidemia, unspecified; I10 Essential (primary) hypertension; Z79.899 Other long term (current) drug therapy; Z88.1 Allergy status to other antibiotic agents; Z88.2 Allergy status to sulfonamides; Z88.8 Allergy status to other drugs, medicaments and biological substances
CPT/HCPCS: 71045; 78452; 80048; 80053; 83880; 84484 ×2; 85025 ×2; 93005; 93017; 96372; 96374; 96375; 99285; A9502; G0378 ×3; J0360; J1650; J2405; J2785 ×2; 36415

== ENCOUNTER 2025-07-01 09:29 | Outpatient (CLI) | payer MEDICARE, OTHER | END 2025-07-01 09:30 | disposition home or self-care (01) | LOC: RAD 09:29 | PROVIDERS: ATTEND Internal Medicine Critical Care Medicine | DX: R06.00 Dyspnea, unspecified (principal) | CPT/HCPCS: 71046 ==

== ENCOUNTER 2025-07-12 10:50 | Outpatient (CLI) | payer OTHER | END 2025-07-12 10:51 | disposition home or self-care (01) | LOC: BICCT 10:50 | PROVIDERS: ATTEND Internal Medicine Critical Care Medicine | DX: J84.9 Interstitial pulmonary disease, unspecified (principal); I51.7 Cardiomegaly | CPT/HCPCS: 71250 ==

== ENCOUNTER 2025-07-16 05:06 | Emergency (ER) | payer OTHER ==
[2025-07-16 06:09] LABS: Hematocrit 34.6 % (36.0-47.0); Hemoglobin 11.4 g/dL (12.0-16.0); Mean Corpuscular Hemoglobin 31.1 pg (27.0-31.0); Mean Corpuscular Volume 94.3 fL (78.0-98.0); Platelet Count 122 10x3/uL (130-400); Red Blood Cell (RBC) Count 3.67 mill/uL (4.20-5.40); White Blood Cell (WBC) Count 6.93 10x3/uL (4.8-10.8)
[2025-07-16 06:24] LABS: ALT (SGPT) 32 U/L (Less than 34); AST (SGOT) 34 U/L (11-34); Albumin 3.9 g/dL (3.1-4.5); Alkaline Phosphatase 88 U/L (40-110); Anion Gap 17 mmol/L (10-20); BUN (Urea Nitrogen) 20 mg/dL (9.8-20.1); Bilirubin, Total 0.6 mg/dL (0.3-1.2); Calc. Creatinine Clearance 0 mL/min (70-130); Calcium 9.7 mg/dL (7.8-10.44); Carbon Dioxide 20 mmol/L (23-31); Chloride 104 mmol/L (98-107); Globulin 3.6 g/dL (2.4-3.5); Glucose 122 mg/dL (83-110); Lipase 18 U/L (8-78); Potassium 4.3 mmol/L (3.5-5.1); Sodium 137 mmol/L (136-145)
[2025-07-16 07:17] LABS: Bacteria/HPF None Seen HPF (None Seen); CAUTI Indications for Culture Dysuria,urgency,freq; Glucose, Urine (Dipstick) Normal (Negative); Leukocyte 25 Leu/uL (Negative); Protein, Urine (Dipstick) Negative (Neg-Trace); RBC/HPF None Seen HPF (0-3); Specific Gravity, Urine 1.009 (1.002-1.036); WBC/HPF 0-3 HPF (0-3)
[2025-07-16 07:51] LABS: Urine Culture Reflex No No
[2025-07-16 10:02] LABS: #Basophils 0.05 10x3/uL (0.0-0.2); #Eosinophils 0.06 10x3/uL (0.0-0.7); #Monocytes 0.37 10x3/uL (0.11-0.59); #Neutrophils 5.06 10x3/uL (1.40-6.50); %Basophils 0.7 % (0.0-1.0); %Eosinophils 0.9 % (0.0-10.0); %Lymphocytes 16.6 % (21.0-51.0); %Monocytes 5.5 % (0.0-10.0); %Neutrophils 75.7 % (42.0-75.0); Ovalocytes MODERATE= 6-15 cells (100X) (0-1/hpf); Plasma Cells 0 % (0-0); Platelet Adequacy Comment Appears Decreased
[2025-07-16] MEDS ORDERED: Iopamidol 370 76% 100 ML VIAL ONE (11:59)
== END 2025-07-16 08:50 | disposition home or self-care (01) ==
LOC: ERS 05:06
DX: K57.92 Diverticulitis of intestine, part unspecified, without perforation or abscess without bleeding (principal); I10 Essential (primary) hypertension; Z79.899 Other long term (current) drug therapy
CPT/HCPCS: 71045; 71275; 74177; 80053; 81001; 83690; 84484; 85025; 93005; J2270; 96374; Q9967